=== PATIENT | female | born 1955 | race Caucasian/White ===

== ENCOUNTER 2023-12-06 20:07 | Inpatient (IN) | payer MEDICARE, MEDICAID, SELFPAY ==
[2023-12-06] VITALS (7 sets, daily range): BP systolic 113–137; BP diastolic 60–96; PULSE 112–134; RESP 18–23; TEMP 37.1–37.8; O2SAT 88–97
--- NOTE | ~2023-12-06 | XR_ITS ---
XR chest 1V portable 12/06/2023 21:30 Indication: Weakness. History of anal cancer. Procedure: AP portable chest Comparison: No prior studies for comparison. Findings: Heart size normal. Portacatheter tip in the SVC. The lungs are hyperinflated which is consi stent with, but not diagnostic of chronic obstructive pulmonary disease. No focal air space disease, pulmonary edema, pleural effusion or suspected pneumothorax. Impression: 1: No acute cardiopulmonary disease. Reviewed, dictated and finalized at location A. Impression: 1: No acute cardiopulmonary disease.
--- NOTE | ~2023-12-06 | CT_ITS ---
EXAMINATION: CTA chest PE protocol DATE: 12/08/2023 11:57 INDICATION: Abdominal pain, fever and elevated d-dimer. TECHNIQUE: Computed tomography (CT) pulmonary angiogram of the chest was performed with 100 mL Omnipa que-350 intravenous contrast. Additional 3D reconstructions utilizing coronal maximum intensity proje ction (MIP) were performed. Automated exposure control and iterative reconstruction technique were em ployed. The dose-length product was 281.60 mGy-cm. COMPARISON: None FINDINGS: Good contrast opacification of the pulmonary arteries with only minimal motion living diagnostic qual ity study which demonstrates no pulmonary embolism. Mild to moderate upper lung predominant emphysema . There is mild atelectasis/scarring at the paramediastinal aspect of the bilateral upper lobes as we ll as at the lingula and anteromedial basilar left lower lobe. There are a few scattered <4 mm pulmon shyla nodules most prominent at the lateral basilar right lower lobe with a few in the bilateral upper lobes. No pneumonia, pulmonary edema or pleural effusion. Heart size is normal. Atherosclerotic coron shyla artery calcifications. No pericardial effusion. Atherosclerotic calcific lesion along the normal caliber thoracic aorta without hemodynamically significant stenosis or dissection. No pathologically enlarged thoracic lymphadenopathy. Visualized upper abdomen is unremarkable. Mild thoracic spondylosi s. Chronic appearing mild anterior wedging of L1 with large Schmorl's node along the inferior endplat e. IMPRESSION: 1. Scattered mild atelectasis/scarring the bilateral lungs. No pulmonary embolism or other acute card iopulmonary disease. 2. Mild to moderate emphysema with few scattered <4 mm bilateral pulmonary nodules which could be con sistent with Lung-RADS category 2: Benign appearance or behavior and would recommend annual screening with noncontrast low-dose chest CT in 12 months. Reviewed, dictated and finalized at location B. IMPRESSION: 1. Scattered mild atelectasis/scarring the bilateral lungs. No pulmonary emboli sm or other acute cardiopulmonary disease. 2. Mild to moderate emphysema with few scattered <4 mm bilateral pulmonary nodu les which could be consistent with Lung-RADS category 2: Benign appearance or b ehavior and would recommend annual screening with noncontrast low-dose chest CT in 12 months.
--- NOTE | ~2023-12-06 | XR_ITS ---
EXAMINATION: XR retrograde pyelogram BI DATE: 12/07/2023 16:09 INDICATION: Right internal ureteral stent placement TECHNIQUE: Fluoroscopic images from a right internal ureteral stent placement are submitted for schuyler grubbs And he 4 seconds of fluoroscopy time. FINDINGS: There is a right double-J internal ureteral stent projecting in expected position, with proximal [place] loop at the level of the renal pelvis and distal loop not visualized. IMPRESSION: 1. Right internal ureteral stent placement. Please refer to real-time procedural findings for felicitas bowser. Reviewed, dictated and finalized at location A. IMPRESSION: 1. Right internal ureteral stent placement. Please refer to real-time procedu ral findings for details.
--- NOTE | ~2023-12-06 | US_ITS ---
EXAMINATION: US abdomen limited DATE: 12/08/2023 08:44 INDICATION: Gallbladder distention. Abdominal pain. TECHNIQUE: Multiple grayscale and Doppler ultrasound images of the abdomen were obtained. COMPARISON: CT abdomen and pelvis 12/06/2023 FINDINGS: The visualized portions of the body of the pancreas are normal. The liver is normal without focal lesion. There is normal flow in main portal vein. The gallbladder is distended and contains ga llstones. No gallbladder wall thickening or sonographic Damon sign. The common duct is normal and me asures 3 mm. IMPRESSION: 1. Cholelithiasis. Gallbladder distention is likely secondary to fasting. Reviewed, dictated and finalized at location A.
--- NOTE | ~2023-12-06 | CT_ITS ---
EXAMINATION: CT brain wo con DATE: 12/06/2023 21:55 INDICATION: Altered mental status TECHNIQUE: Computed tomography (CT) of the head was performed without intravenous contrast. The dose- length product was 605.33 mGy-cm. Automated exposure control and iterative reconstruction technique w ere employed. COMPARISON: None FINDINGS: There is a chronic right occipital lobe infarction with encephalomalacia. Normal brain pare nchymal volume otherwise. Normal brown-white differentiation. There is intracranial atherosclerosis. P aranasal sinuses and mastoids are pneumatized. No depressed skull fractures. There are scattered mild periventricular and subcortical white matter changes, most likely related to small vessel ischemic d isease (microangiopathy). Midline sagittal images are unremarkable. IMPRESSION: 1. No acute intracranial abnormality. 2: Chronic right occipital lobe infarction. Reviewed, dictated and finalized at location A.
--- NOTE | ~2023-12-06 | CT_ITS ---
EXAMINATION: CT abdomen pelvis w con DATE: 12/06/2023 21:55 INDICATION: Abdominal pain. History of anal cancer. TECHNIQUE: Computed tomography (CT) of the abdomen and pelvis was performed with 100 cc Omnipaque 350 intravenous contrast. The dose-length product was 344.50 mGy-cm. Automated exposure control and iter ative reconstruction technique were employed. COMPARISON: None. FINDINGS: There is lingular atelectasis/scarring. Heart size normal. No significant pleural or perica rdial effusion. Mild atherosclerosis of the aorta without aneurysm. Colostomy present in the left abd omen. Normal appendix. Status post distal colonic and rectal resection with prominent abnormal presac ral and retroperitoneal soft tissue, likely fibrosis. There is right hydroureteronephrosis with abrup t termination of the ureter in the right pelvis. Findings compatible with obstruction, likely seconda ry to fibrotic tissue. The bladder is diffusely thickened and irregular and with enhancement which ma y relate to radiation therapy and/or chronic cystitis. Small locules of gas are present in the retrop eritoneal soft tissue on the right of uncertain significance. Gallbladder is markedly distended. No s ignificant biliary dilatation. The liver, spleen, adrenal glands and left kidney are unremarkable. No significant vascular abnormality. IMPRESSION: 1. Status post resection of the distal colon and rectum with colostomy in the left lower abdominal wa ll. No obstruction. There is prominent retroperitoneal and presacral soft tissue likely postoperative /post radiation therapy fibrosis. Dilated right ureter terminates in the area of soft tissue, likely acting as a source of obstruction. There is moderate right hydronephrosis. 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 3: Severely distended gallbladder, nonspecific. No significant surrounding inflammatory changes. Reviewed, dictated and finalized at location A. IMPRESSION: 1. Status post resection of the distal colon and rectum with colostomy in the l eft lower abdominal wall. No obstruction. There is prominent retroperitoneal an d presacral soft tissue likely postoperative/post radiation therapy fibrosis. D ilated right ureter terminates in the area of soft tissue, likely acting as a s ource of obstruction. There is moderate right hydronephrosis. 2: Severely thickened irregular bladder wall which may relate to prior radiati on therapy and/or chronic cystitis. 3: Severely distended gallbladder, nonspecific. No significant surrounding infl ammatory changes.
--- NOTE | 2023-12-06 20:15 | ECG_ITS ---
SEE SCANNED COPY FOR CONFIRMED REPORT MTDD
[2023-12-06 20:39] LABS: Glucose Point of Care 177 mg/dl (65-105)
[2023-12-06] MEDS: ACETAMINOPHEN 500 MG TABLET 1000 MG PO (21:13)
[2023-12-06] MEDS: SODIUM CHLORIDE 0.9% IV 1,000 ML 999 ML IV CONT (21:13)
[2023-12-06 21:17] LABS: Hemoglobin 11.6 g/dL (12.0-15.0); Mean Corpuscular HGB Conc 30.5 g/dl (32-36); Mean Corpuscular Hemoglobin 25.4 pg (26-34); Mean Corpuscular Volume 83.2 fl (80-100); Mean Platelet Volume 9.7 fl (7.4-10.4); Platelet Count Result 257 k/mm3 (150-375); Red Blood Count 4.57 M/mm3 (4.2-5.4); Red Cell Distribution Width 15.6 % (11.5-14.5); White Blood Count 21.2 K/mm3 (4.5-10.0)
[2023-12-06 21:28] LABS: Prothrombin Time 13.7 Seconds (11.1-14.7)
[2023-12-06 21:29] LABS: Partial Thromboplastin Time 37.7 Seconds (22.3-36.8)
[2023-12-06 21:32] LABS: Alanine Aminotransferase 11 U/L (6-35); Albumin Level 4.5 g/dL (3.5-5.1); Alkaline Phosphatase 146 U/L (38-126); Anion Gap 9 mmol/L (4-12); Aspartate Amino Transferase 18 U/L (14-36); Bilirubin,Total 0.8 mg/dL (0.2-1.3); Blood Urea Nitrogen 16 mg/dL (7-17); Calcium 9.7 mg/dL (8.4-10.2); Carbon Dioxide 27 mmol/L (22-30); Chloride 102 mmol/L (98-107); Estimated Glomerular Filt Rate > 60; Glucose 164 mg/dL (65-110); Potassium 3.9 mmol/L (3.4-5.0); Sodium 138 mmol/L (137-145)
[2023-12-06 21:33] LABS: Lactic Acid Reflex 1.5 mmol/L (0.7-2.0)
[2023-12-06 21:43] LABS: Band Neutrophils Percent 4 % (0-6); Lymphocytes Absolute Manual 1.06 K/mm3 (1.1-4.5); Monocytes Absolute Manual 2.12 K/mm3 (0.1-0.90); Monocytes Percent Manual 10 % (3-9); Neutrophils Absolute Manual 18.02 K/mm3 (1.7-7.2); Neutrophils Percent Manual 81 % (46-73); Platelet Estimate Adequate (Adequate); Total Cells Counted 100
[2023-12-06 21:44] LABS: Anisocytosis 1+; Hypochromasia 1+; Schistocytes None Seen; Troponin I < 0.012 ng/mL (0.000-0.034)
[2023-12-06 21:48] LABS: Amphetamine Screen Urine Negative (Negative); Barbiturate Screen Urine Negative (Negative); Benzodiazepines Screen Urine Negative (Negative); Cannabinoid Screen Urine Negative (Negative); Cocaine Screen Urine Negative (Negative); Methadone Screen Urine Negative (Negative); Opiate Screen Urine Negative (Negative); Phencyclidine Screen Urine Negative (Negative)
[2023-12-06 21:52] LABS: Procalcitonin 0.4 ng/mL
[2023-12-06 22:00] LABS: Appearance Urine Cloudy (Clear); Bacteria Urine Rare /hpf; Bilirubin Urine Negative (Negative); Blood Urine 2+ (Negative); Color Urine Yellow (Yellow); Glucose Urine UA Negative (Negative); Ketones Urine Negative (Negative); Leukocyte Esterase Ur 2+ LEU/UL (Negative); Need Manual Microscopic Reviewed; Nitrate Urine Negative (Negative); Protein Urine 2+ mg/dL (Negative); RBC Urine 21-50 /hpf (0-2); Specific Grav Ur 1.015 (1.001-1.035); Squamous Epithelial Cell Urine None Seen /hpf (Few); WBC Urine >100 /hpf (0-3)
[2023-12-06 22:01] LABS: Add Urine Microscopic? YES
[2023-12-06 22:02] LABS: Influenza A QL RT-PCR Negative (Negative); Influenza B QL RT-PCR Negative (Negative); RSV RNA, RT-PCR Negative (Negative); SARS-CoV-2 RNA PCR Negative (Negative)
--- NOTE | 2023-12-06 22:57 | PC.NURSE ---
Assumed care of pt from [facility] at this time.
--- NOTE | 2023-12-06 23:28 | PM.IMHP ---
H&P: HPI History of Present Illness Date/Time: 12/06/23 23:28 Chief Complaint: AMS Narrative: THIS IS A 68-YEAR-OLD FEMALE WITH PAST MEDICAL HISTORY SIGNIFICANT FOR COPD/EMPHYSEMA, CHRONIC HYPOXIC RESPIRATORY FAILURE, ON SUPPLEMENTAL OXYGEN AT HOME BY NASAL CANNULA, TOBACCO DEPENDENCE, CERVICAL CA, RADIATION, COLOSTOMY. PATIENT PRESENTS TO THE EMERGENCY ROOM DUE TO ALTERED MENTAL STATUS WAS INCOHERENT. MOST OF THE HISTORY HAS BEEN OBTAINED FROM SON WHO IS AT BEDSIDE AT THE TIME OF MY VISIT PATIENT IS AWAKE ALERT ORIENTED X3 HOWEVER HAS NO RECOLLECTION OF THESE EPISODES STATES THAT SHE HAS BEEN FINE DENIES ANY FEVERS, RIGORS, CHILLS, NAUSEA, VOMITING. PRELIMINARY WORKUP WAS SIGNIFICANT FOR URINALYSIS WITH NUMEROUS WBCS PRESENT XR chest 1V portable 12/06/2023 21:30 Indication: Weakness. History of anal cancer. Procedure: AP portable chest Comparison: No prior studies for comparison. Findings: Heart size normal. Portacatheter tip in the SVC. The lungs are hyperinflated which is consistent with, but not diagnostic of chronic obstructive pulmonary disease. No focal air space disease, pulmonary edema, pleural effusion or suspected pneumothorax. Impression: 1: No acute cardiopulmonary disease. EXAMINATION: CT brain wo con DATE: 12/06/2023 21:55 INDICATION: Altered mental status TECHNIQUE: Computed tomography (CT) of the head was performed without intravenous contrast. The dose-length product was 605.33 mGy-cm. Automated exposure control and iterative reconstruction technique were employed. COMPARISON: None FINDINGS: There is a chronic right occipital lobe infarction with encephalomalacia. Normal brain parenchymal volume otherwise. Normal brown-white differentiation. There is intracranial atherosclerosis. Paranasal sinuses and mastoids are pneumatized. No depressed skull fractures. There are scattered mild periventricular and subcortical white matter changes, most likely related to small vessel ischemic disease (microangiopathy). Midline sagittal images are unremarkable. IMPRESSION: 1. No acute intracranial abnormality. 2: Chronic right occipital lobe infarction. EXAMINATION: CT abdomen pelvis w con DATE: 12/06/2023 21:55 INDICATION: Abdominal pain. History of anal cancer. TECHNIQUE: Computed tomography (CT) of the abdomen and pelvis was performed with 100 cc Omnipaque 350 intravenous contrast. The dose-length product was 344.50 mGy-cm. Automated exposure control and iterative reconstruction technique were employed. COMPARISON: None. FINDINGS: There is lingular atelectasis/scarring. Heart size normal. No significant pleural or pericardial effusion. Mild atherosclerosis of the aorta without aneurysm. Colostomy present in the left abdomen. Normal appendix. Status post distal colonic and rectal resection with prominent abnormal presacral and retroperitoneal soft tissue, likely fibrosis. There is right hydroureteronephrosis with abrupt termination of the ureter in the right pelvis. Findings compatible with obstruction, likely secondary to fibrotic tissue. The bladder is diffusely thickened and irregular and with enhancement which may relate to radiation therapy and/or chronic cystitis. Small locules of gas are present in the retroperitoneal soft tissue on the right of uncertain significance. Gallbladder is markedly distended. No significant biliary dilatation. The liver, spleen, adrenal glands and left kidney are unremarkable. No significant vascular abnormality. IMPRESSION: 1. Status post resection of the distal colon and rectum with colostomy in the left lower abdominal wall. No obstruction. There is prominent retroperitoneal and presacral soft tissue likely postoperative/post radiation therapy fibrosis. Dilated right ureter terminates in the area of soft tissue, likely acting as a source of obstruction. There is moderate right hydronephrosis. 2:? Severely thickened irregular bladder wall which may relate to prior radiation therapy
--- NOTE | 2023-12-06 23:34 | ED.GENADULT ---
HPI - General Adult General Chief complaint: Altered Mental Status Stated complaint: confusion Time Seen by Provider: 12/06/23 20:41 History of Present Illness HPI narrative: patient is a 68-year-old female who presents emergency department with chief complaint of altered mental status. Patient has prior history of cancer and takes chronic pain medications the patient has had a diverting colostomy the patient today started having a temperature and was talking nonsensical to the family she was extremely weak and decided to bring the patient to our emergency department. Related Data Allergies Allergy/AdvReac Type Severity Reaction Status Date / Time No Known Allergies Allergy Verified 12/06/23 20:58 Review of Systems Review of Systems: A 10 system review of systems was completed on the patient and is negative except for what is stated in the HPI. Nursing and ancillary documentation was reviewed. Exam Narrative: GENERAL: ill-appearing, well-nourished, and in no acute distress. HEAD: Normocephalic, atraumatic. EYES: PERRLA and EOMI. ENT: Nares clear, no rhinorrhea or epistaxis. Mucous membranes moist. NECK: Supple. CHEST: Clear to auscultation. No respiratory distress. HEART: Regular rate and rhythm. No murmur heard. Normal peripheral pulses. ABDOMEN: Soft, nontender, nondistended, normal active bowel sounds. colostomy present EXTREMITIES: Normal range of motion. No edema. SKIN: Warm, dry, no rash. NEURO: No focal deficits. Alert and oriented x3. PSYCH: Normal mood and affect. Course Vital Signs Vital signs: Vital Signs Temperature 37.8 C H 12/06/23 20:10 Pulse Rate 134 H 12/06/23 20:10 Respiratory Rate 20 12/06/23 20:10 Blood Pressure 137/62 12/06/23 20:10 Pulse Oximetry 93 12/06/23 20:10 Oxygen Delivery Room Air 12/06/23 20:10 Temperature 37.1 C 12/06/23 21:00 Pulse Rate 112 H 12/06/23 22:44 Respiratory Rate 20 12/06/23 22:44 Blood Pressure 113/60 12/06/23 22:44 Pulse Oximetry 96 12/06/23 22:44 Oxygen Delivery Nasal Cannula 12/06/23 21:58 Oxygen Flow Rate 3 12/06/23 21:58 Medical Decision Making MDM Narrative Medical decision making narrative: differential diagnosis includes viral illness, sepsis, UTI, pyelonephritis, intra-abdominal infection, pneumonia laboratory studies were obtained on patient showed white count [id number] electrolytes showed normal renal function pre troponin was less than 0.012 procalcitonin 0.4 lactic acid was 1.5 urinalysis showed 2+ leuks greater than 100 white blood cells urine drug screen was negative COVID flu and RSV were negative CT head showed no acute abnormality chest x-ray showed no focal infiltrate CT abdomen pelvis showed 1. Status post resection of the distal colon and rectum with colostomy in the left lower abdominal wall. No obstruction. There is prominent retroperitoneal and presacral soft tissue likely postoperative/post radiation therapy fibrosis. Dilated right ureter terminates in the area of soft tissue, likely acting as a source of obstruction. There is moderate right hydronephrosis. 2:? Severely thickened irregular bladder wall which may relate to prior radiation therapy and/or chronic cystitis. 3: Severely distended gallbladder, nonspecific. No significant surrounding inflammatory changes. patient was blood cultured and also started on Rocephin. A call has been placed to Urology for palpitation to hydronephrosis on the scan Vital Signs Vital Signs: Vital Signs Temperature 37.8 C H 12/06/23 20:10 Pulse Rate 134 H 12/06/23 20:10 Respiratory Rate 20 12/06/23 20:10 Blood Pressure 137/62 12/06/23 20:10 Pulse Oximetry 93 12/06/23 20:10 Oxygen Delivery Room Air 12/06/23 20:10 Temperature 37.1 C 12/06/23 21:00 Pulse Rate 112 H 12/06/23 22:44 Respiratory Rate 20 12/06/23 22:44 Blood Pressure 113/60 12/06/23 22:44 Pulse Oximetry 96 12/06/23 22:44 Oxygen Deliv
[2023-12-07] VITALS (21 sets, daily range): BP systolic 106–142; BP diastolic 50–78; PULSE 111–140; RESP 14–20; TEMP 36.6–38; O2SAT 94–100
--- NOTE | 2023-12-07 00:40 | ECG_ITS ---
SEE SCANNED COPY FOR CONFIRMED REPORT MTDD
[2023-12-07] MEDS: SODIUM CHLORIDE 0.9% IV 1,000 ML 999 ML IV CONT (00:59)
[2023-12-07] MEDS: ACETAMINOPHEN 325 MG TABLET 650 MG PO (01:00)
--- NOTE | 2023-12-07 02:38 | ADMGEN ---
This patient, Anny Logan, was admitted to [facility] Surg Room 332-01. Patient/family oriented to hospital policies and general routines including ID bracelet, bed and alarms, visiting hours, pain management, procedures, bathroom and other care routines, personal items, smoking policy, room service/diet, and visiting hours. Information on how to activate the Rapid Response Team has been discussed. Patient/Family are encouraged to report perceived risks to care and to ask questions if they do not understand what they are told or what they should do.
[2023-12-07] MEDS: SODIUM CHLORIDE 0.9% IV 1,000 ML 75 ML IV CONT ×2 (02:50→17:27)
--- NOTE | 2023-12-07 02:57 | PC.NURSE ---
this RN attempted to complete pts admissions, pt was non compliant with answering most of the admission questions and what medications they were taking
--- NOTE | 2023-12-07 03:33 | ECG_ITS ---
SEE SCANNED COPY FOR CONFIRMED REPORT MTDD
--- NOTE | 2023-12-07 07:07 | WPDURCON ---
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 She is status post diverting colostomy for GI malignancy in the past. On evaluation CT scan demonstrates right hydronephrosis with dilatation of the ureter into the pelvis where she has both a very thickened bladder wall and some evidence of pelvic scarring/ fibrosis. Etiology of this hydronephrosis appears uncertain but there is no apparent ureteral calculi. She denies flank pain. She has no history of recurrent urinary tract infection lithiasis or other significant urological issues Review of Systems Review of Systems: All systems reviewed & are unremarkable except as noted in HPI and below PMFSH Social History Social History Smoking packs per day: 1 Smoking cigarettes per day: 20.0 Smoking status: Current every day smoker Tobacco type: cigarettes Alcohol intake: current Substance use: never Do You Feel Safe in your Home?: Yes Lack of Transportation: No Lack of Food: Never True Current Housing: I Have Housing Concerned About Future Housing: No Difficulty Paying Gas/Electric Bills: No Difficulty Paying for Meds: No Currently Unemployed: No Education: High School Diploma/GED Difficulty w/ Childcare or Family Care: No Spiritual care concerns: No Meds Home Medications and Allergies Home Medications Medication Instructions Recorded Confirmed Type atorvastatin 40 mg tablet 40 mg PO DAILY 12/07/23 12/07/23 History gabapentin 300 mg capsule 300 mg PO TID 12/07/23 12/07/23 History nortriptyline 25 mg capsule 25 mg PO HS 12/07/23 12/07/23 History oxycodone-acetaminophen 5 mg-325 1 tablet PO TID 12/07/23 12/07/23 History mg tablet topiramate 50 mg tablet 50 mg PO DAILY 12/07/23 12/07/23 History Allergies Allergy/AdvReac Type Severity Reaction Status Date / Time No Known Allergies Allergy Verified 12/06/23 20:58 Vital Signs Vital Signs - 24 hr 12/06/23 20:10 12/06/23 21:00 12/06/23 21:02 Temperature 100.1 F H 98.7 F Pulse Rate 134 H 122 H Respiratory Rate 20 23 H Blood Pressure 137/62 125/69 Pulse Oximetry 93 88 L 95 Oxygen Delivery Room Air Nasal Cannula Oxygen Flow Rate 2 12/06/23 21:21 12/06/23 21:43 12/06/23 21:58 Temperature Pulse Rate 115 H 115 H Respiratory Rate 22 H 18 Blood Pressure 123/70 118/96 H Pulse Oximetry 94 97 97 Oxygen Delivery Nasal Cannula Oxygen Flow Rate 3 12/06/23 22:44 12/07/23 01:00 12/07/23 01:04 Temperature 99.9 F H Pulse Rate 112 H 140 H Respiratory Rate 20 Blood Pressure 113/60 Pulse Oximetry 96 Oxygen Delivery Oxygen Flow Rate 12/07/23 01:38 12/07/23 01:40 12/07/23 02:35 Temperature 100.4 F H Pulse Rate 126 H 124 H 129 H Respiratory Rate 19 17 20 Blood Pressure 140/78 140/78 132/57 L Pulse Oximetry 96 97 99 Oxygen Delivery Oxygen Flow Rate 12/07/23 06:00 12/07/23 04:00 Temperature 98.0 F Pulse Rate 125 H 122 H Respiratory Rate 20 Blood Pressure 129/67 Pulse Oximetry 97 Oxygen Delivery Oxygen Flow Rate Exam Const: General: no acute distress Resp: Effort & Inspection: normal respiratory effort GI: Inspection: non
--- NOTE | 2023-12-07 07:10 | WPDHPUPDATE1 ---
History and Physical Update Update Date/Time: 12/07/23 07:10 History and Physical has been reviewed, including an updated exam of the patient. There are NO changes in the patient's condition. Risks, benefits, and alternatives have been discussed and questions answered. Patient agrees to proceed with procedure.
--- NOTE | 2023-12-07 08:37 | P.PNIM_ITS ---
Progress Note: A&P Assessment and Plan (1) Sepsis: Code(s): A41.9 - Sepsis, unspecified organism Status: Acute Assessment and Plan: 12/07/23: * Meeting sepsis criteria with HR of , RR 22-24, temp 100.4, elevated WBC, and known source of infection/UTI * Patient was given 2 L normal saline in the ED and started on IVF at 75 mL/hour * WBC 21.2 initially, now 22.5, Lactic acid 1.5 * Blood cultures obtained in her pending, currently showing no growth to date on preliminary read * UA showing 2+ protein 2+ blood 2+ leukocytes, greater than 100 urine WBCs, rare bacteria, negative nitrate * Urine cultures pending * Will change Rocephin 1 g 2 Rocephin 2 g Q 24 hours * Chest x-ray was negative * Head CT was negative for any acute intracranial abnormality 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 * CT of the abdomen pelvis showed a dilated right ureter that terminated into the area of soft tissue likely acting as a source of obstruction, moderate right hydronephrosis, severely thickened irregular bladder wall, severely distended gallbladder (2) Acute UTI: Code(s): N39.0 - Urinary tract infection, site not specified Status: Acute Assessment and Plan: 11/05/23: ADMIT TO REGULAR MEDICAL FLOOR STARTED ON ANTIBIOTICS CULTURES IN PROGRESS SUPPORTIVE CARE 11/06/23: * * WBC 22.5 * Blood culture showing no growth on preliminary read * UA showed 2+ protein, 2+ urine blood, 2+ leukocytes, greater than 100 urine wbc's, 21-50 urine RBCs, rare urine bacteria, nitrates were negative * Urine cultures pending * Increase to 2 g Rocephin daily * Status post cystoscopy with right ureteral stent placement * Continue with Yuen, currently draining pink tinged urine * Continue cardiac monitoring * Continue with SCDs * Magnesium 1.4, will give 3 g of Mag today * Continue pain control (3) Altered mental status: Code(s): R41.82 - Altered mental status, unspecified Status: Acute Assessment and Plan: RESOLVED LIKELY SECONDARY TO 1. 11/06/23: * Alert to voice and oriented x1, however she is in the PACU status post cystoscopy * Will reassess in the morning (4) Chronic hypoxic respiratory failure: Code(s): J96.11 - Chronic respiratory failure with hypoxia Status: Acute Assessment and Plan: ON SUPPLEMENTAL OXYGEN BY NASAL CANNULA 11/06/23: * Currently on 2 L nasal cannula * Wheezing noted bilaterally throughout all lung tamayo * Will put in DuoNebs q.6 hours (5) COPD with emphysema: Code(s): J43.9 - Emphysema, unspecified Status: Acute Assessment and Plan: CONTINUE HOME MEDS NOT ACTIVELY WHEEZING 11/06/23: * Wheezing noted today * Neb treatments started Time Spent With Patient Time with patient: 25 - 35 minutes Subjective Date/time seen: 12/07/23 08:37 Interval history: This is a 68 year old female who presents to the hospital for evaluation of AMS. Work up in the hospital included a chest x-ray that was negative, head CT which shown a right occipital lobe infarction, no acute intracranial abnormality, CT of the abdomen/pelvis shown a dilated right ureter that terminates into soft tissue, likely an obstruction, moderate right hydronephrosis, severely distended gallbladder. Initial labs revealed a WBC of 21.2, Hgb 11.6, Alk phos 146. UA revealed 2+ protein, 2+ urine blood, 2+ leukocytes, urine RBC 21-50, urine WBC >100. UDS negative. Respiratory panel negative for RSV, COVID, and FLU A/B. Blood and urine cultures were obtained and pending. Patient was given 2L NS
--- NOTE | 2023-12-07 08:37 | PM.IMPN ---
Progress Note: A&P Assessment and Plan (1) Sepsis: Code(s): A41.9 - Sepsis, unspecified organism Status: Acute Assessment and Plan: 12/07/23: Meeting sepsis criteria with HR of , RR 22-24, temp 100.4, elevated WBC, and known source of infection/UTI Patient was given 2 L normal saline in the ED and started on IVF at 75 mL/hour WBC 21.2 initially, now 22.5, Lactic acid 1.5 Blood cultures obtained in her pending, currently showing no growth to date on preliminary read UA showing 2+ protein 2+ blood 2+ leukocytes, greater than 100 urine WBCs, rare bacteria, negative nitrate Urine cultures pending Will change Rocephin 1 g 2 Rocephin 2 g Q 24 hours Chest x-ray was negative Head CT was negative for any acute intracranial abnormality 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 CT of the abdomen pelvis showed a dilated right ureter that terminated into the area of soft tissue likely acting as a source of obstruction, moderate right hydronephrosis, severely thickened irregular bladder wall, severely distended gallbladder (2) Acute UTI: Code(s): N39.0 - Urinary tract infection, site not specified Status: Acute Assessment and Plan: 11/05/23: ADMIT TO REGULAR MEDICAL FLOOR STARTED ON ANTIBIOTICS CULTURES IN PROGRESS SUPPORTIVE CARE 11/06/23: WBC 22.5 Blood culture showing no growth on preliminary read UA showed 2+ protein, 2+ urine blood, 2+ leukocytes, greater than 100 urine wbc's, 21-50 urine RBCs, rare urine bacteria, nitrates were negative Urine cultures pending Increase to 2 g Rocephin daily Status post cystoscopy with right ureteral stent placement Continue with Yuen, currently draining pink tinged urine Continue cardiac monitoring Continue with SCDs Magnesium 1.4, will give 3 g of Mag today Continue pain control (3) Altered mental status: Code(s): R41.82 - Altered mental status, unspecified Status: Acute Assessment and Plan: RESOLVED LIKELY SECONDARY TO 1. 11/06/23: Alert to voice and oriented x1, however she is in the PACU status post cystoscopy Will reassess in the morning (4) Chronic hypoxic respiratory failure: Code(s): J96.11 - Chronic respiratory failure with hypoxia Status: Acute Assessment and Plan: ON SUPPLEMENTAL OXYGEN BY NASAL CANNULA 11/06/23: Currently on 2 L nasal cannula Wheezing noted bilaterally throughout all lung tamayo Will put in DuoNebs q.6 hours (5) COPD with emphysema: Code(s): J43.9 - Emphysema, unspecified Status: Acute Assessment and Plan: CONTINUE HOME MEDS NOT ACTIVELY WHEEZING 11/06/23: Wheezing noted today Neb treatments started Time Spent With Patient Time with patient: 25 - 35 minutes Subjective Date/time seen: 12/07/23 08:37 Interval history: This is a 68 year old female who presents to the hospital for evaluation of AMS. Work up in the hospital included a chest x-ray that was negative, head CT which shown a right occipital lobe infarction, no acute intracranial abnormality, CT of the abdomen/pelvis shown a dilated right ureter that terminates into soft tissue, likely an obstruction, moderate right hydronephrosis, severely distended gallbladder. Initial labs revealed a WBC of 21.2, Hgb 11.6, Alk phos 146. UA revealed 2+ protein, 2+ urine blood, 2+ leukocytes, urine RBC 21-50, urine WBC >100. UDS negative. Respiratory panel negative for RSV, COVID, and FLU A/B. Blood and urine cultures were obtained and pending. Patient was given 2L NS and started on Rocephin. Patient initially meeting sepsis criteria with a temp of 100.4, pulse of 134, tachypnea with RR of 23, hypoxia 88% on room air, elevated WBC, and known source of infection. Urology was consulted and is planning for cystoscopy with right retrograde pyelography, right ureteroscopy and stent placement today. On examination today patient is arousable to voice, currently in PACU recovery s/p cystoscopy with
[2023-12-07 10:03] LABS: Hematocrit 33.3 % (37.0-47.0); Hemoglobin 9.9 g/dL (12.0-15.0); Mean Corpuscular HGB Conc 29.7 g/dl (32-36); Mean Corpuscular Hemoglobin 25.3 pg (26-34); Mean Corpuscular Volume 84.9 fl (80-100); Mean Platelet Volume 10.6 fl (7.4-10.4); Platelet Count Result 192 k/mm3 (150-375); Red Blood Count 3.92 M/mm3 (4.2-5.4); Red Cell Distribution Width 15.6 % (11.5-14.5); White Blood Count 22.5 K/mm3 (4.5-10.0)
[2023-12-07 10:05] LABS: Alanine Aminotransferase 10 U/L (6-35); Albumin Level 3.6 g/dL (3.5-5.1); Alkaline Phosphatase 109 U/L (38-126); Anion Gap 3 mmol/L (4-12); Aspartate Amino Transferase 15 U/L (14-36); Bilirubin,Total 0.5 mg/dL (0.2-1.3); Blood Urea Nitrogen 12 mg/dL (7-17); Calcium 8.1 mg/dL (8.4-10.2); Carbon Dioxide 29 mmol/L (22-30); Chloride 106 mmol/L (98-107); Estimated Glomerular Filt Rate > 60; Glucose 145 mg/dL (65-110); Magnesium 1.4 mg/dL (1.6-2.3); Potassium 3.5 mmol/L (3.4-5.0); Sodium 138 mmol/L (137-145)
[2023-12-07] MEDS: LACTATED RINGERS 1,000 ML 30 ML IV CONT (13:55)
--- NOTE | 2023-12-07 14:24 | WPDANESEPPF ---
Anes - Initial Pre Proc Eval Procedure: Operation Date: 12/07/23 15:15 Proposed Procedures p Cystoscopy, Right Retrograde Pyelogram, Right Ureteroscopy, Right Ureteral Stent Placement - Familia Sena MD Date/Time: 12/07/23 14:24 Surgeon: Ritchie Gannon MD Pre Op Diagnosis: UTI,Leukocytosis Patient Data Age: 68 Gender: F Height: 1.5 m Weight: 65 kg Last Vital Signs Temp 98.0 F 12/07/23 06:00 Pulse 125 H 12/07/23 06:00 Resp 20 12/07/23 06:00 BP 129/67 12/07/23 06:00 Pulse Ox 94 12/07/23 08:00 O2 Del Method Nasal Cannula 12/07/23 08:00 O2 Flow Rate 3 12/07/23 08:00 Allergies Allergy/AdvReac Type Severity Reaction Status Date / Time No Known Allergies Allergy Verified 12/06/23 20:58 Home Medications Medication Instructions Recorded Confirmed Type atorvastatin 40 mg tablet 40 mg PO DAILY 12/07/23 12/07/23 History gabapentin 300 mg capsule 300 mg PO TID 12/07/23 12/07/23 History nortriptyline 25 mg capsule 25 mg PO HS 12/07/23 12/07/23 History oxycodone-acetaminophen 5 mg-325 1 tablet PO TID 12/07/23 12/07/23 History mg tablet topiramate 50 mg tablet 50 mg PO DAILY 12/07/23 12/07/23 History Laboratory Tests 12/06/23 12/06/23 12/06/23 20:37 21:04 21:05 WBC 21.2 H K/mm3 (4.5-10.0) RBC 4.57 M/mm3 (4.2-5.4) Hgb 11.6 L g/dL (12.0-15.0) Hct 38.0 % (37.0-47.0) MCV 83.2 fl (80-100) MCH 25.4 L pg (26-34) MCHC 30.5 L g/dl (32-36) RDW 15.6 H % (11.5-14.5) Plt Count 257 k/mm3 (150-375) MPV 9.7 fl (7.4-10.4) Immature Gran % (Auto) Not Reportable Neut % (Auto) Not Reportable Lymph % (Auto) Not Reportable [place] % (Auto) Not Reportable Eos % (Auto) Not Reportable Baso % (Auto) Not Reportable Lymph # (Auto) Not Reportable [place] # (Auto) Not Reportable Eos # (Auto) Not Reportable Baso # (Auto) Not Reportable Abs Immat Gran (auto) Not Reportable Absolute Neuts (auto) Not Reportable Absolute Nucleated RBC Not Reportable Total Counted 100 Neutrophils % (Manual) 81 H % (46-73) Band Neutrophils % 4 % (0-6) Lymphocytes % (Manual) 5.0 L % (18-44) Monocytes % (Manual) 10 H % (3-9) Nucleated RBC % Not Reportable Abs Neuts (Manual) 18.02 H K/mm3 (1.7-7.2) Abs Lymphs (Manual) 1.06 L K/mm3 (1.1-4.5) Abs Monocytes (Manual) 2.12 H K/mm3 (0.1-0.90) Platelet Estimate Adequate (Adequate) Hypochromasia 1+ Anisocytosis 1+ Schistocytes None seen PT 13.7 Seconds (11.1-14.7) INR 1.0 APTT 37.7 H Seconds (22.3-36.8) Sodium Cancelled Potassium Chloride Carbon Dioxide Anion Gap BUN Creatinine Estim Creat Clear Calc Estimated GFR Glucose POC Capillary Glucose 177 H mg/dl (65-105) Lactic Acid 1.5 mmol/L (0.7-2.0) Calcium Magnesium Total Bilirubin AST ALT Alkaline Phosphatase Troponin I Total Protein Albumin Procalcitonin Urine Color Urine Appearance Urine pH Ur Specific [place] Urine Protein Urine Glucose (UA) Urine Ketones Ur Blood (Man) Urine Nitrate Urine Bilirubin Urine Urobilinogen Add Ur Microanalysis Leukocyte Esterase Rfl Urine RBC Urine WBC Ur Squamous Epith Cells Urine
--- NOTE | 2023-12-07 15:15 | PCCCNOTE ---
On 12/07/23, the student, [Ghada Garcia], provided care and completed [facility] documentation on this patient. I have reviewed the student's documentation and agree with the findings.
[2023-12-07] MEDS: LIDOCAINE HCL 2% GEL UROJET 10 ML PKG MUCOUS MEM (15:50)
--- NOTE | 2023-12-07 16:03 | W.PM.PROC2 ---
Procedure Note - Detailed Date of Procedure 12/07/23 Pre-op Diagnosis UTI,Leukocytosis Post-op Diagnosis Other (1. 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 Patchy hyperemia of bladder of uncertain etiology) Procedure Performed Cystoscopy, bilateral retrograde pyelography, right ureteroscopy, right ureteral stent placement, bladder biopsy Surgeon Familia Sena MD Anesthesia General Findings 1. Diffuse, asymmetrical patchy hyperemia involving predominantly the left lateral bladder wall 2, Marked narrowing and medial deviation of the entire distal right ureter consistent with retroperitoneal fibrosis Description of Procedure Patient is brought to the operative suite where she is prepped and draped in routine sterile fashion while in dorsal lithotomy position after the uneventful induction of a general anesthetic. Cystoscopy was undertaken with a 21 F rigid cystoscope. Urine was collected for cytology. I immediately noticed has this unusual appearing asymmetrical patchy hyperemia that may be inflammatory but involves more so the left lateral bladder wall than anywhere else. At the termination of the procedure I obtained cold cup biopsies from that area and cauterized the base with a Bugbee electrode. Identifying her ureteral orifices was extremely difficult because of this hyperemia in the left lateral bladder wall and on the right extensive scarring. I did did find a ureteral orifice which I thought may be the right ureteral orifice. Retrograde pyelography, however, showed it to be the left. There were no filling defects or points of obstruction in the left ureter or collecting system. With an exhaustive attempt I was eventually able to find the right ureteral orifice. Retrograde pyelography shows concentric narrowing with marked medial deviation consistent with retroperitoneal fibrosis. I performed ureteroscopy of the distal ureter with a flexible ureteral scope. There were no mucosal defects her hyper per Dora is suggestive of neoplasm. I dilated the ureter with an 8 F 10 F dilator and placed a 7 F variable length stent with proximal coil in the renal pelvis and distal coil in the bladder. A 16 F catheter was placed and she was taken recovery room good condition. Urine Output 250 Drains Yes Pathology Yes Complications No immediate complications Condition Stable Disposition PACU
[2023-12-07] MEDS: MAGNESIUM SULFATE 3GM/D5W100ML 3 GM/100 ML BAG IVPB (17:24)
[2023-12-07] MEDS: IPRATROPIUM 0.5 MG/ALBUTEROL SULFATE 2.5 MG AMPUL.NEB 3 ML INHALATION (20:20)
[2023-12-07] MEDS: cefTRIAXone 2 GM/NS 100 ML 2 GM/100 ML BAG IVPB (21:28)
[2023-12-08] VITALS (18 sets, daily range): BP systolic 118–135; BP diastolic 53–73; PULSE 98–125; RESP 12–20; TEMP 35.7–36.9; O2SAT 98–100
[2023-12-08 00:46] LABS: Glucose Point of Care 160 mg/dl (65-105)
[2023-12-08] MEDS: IPRATROPIUM 0.5 MG/ALBUTEROL SULFATE 2.5 MG AMPUL.NEB 3 ML INHALATION ×4 (02:34→20:40)
--- NOTE | 2023-12-08 06:19 | WPDUROPN2 ---
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 onc. evaluation of retroperitoneal fibrosis to r/o malignant recurrence of colon cancer Mgmt. of ureteral obstruction will be challenging and may require long-term stent. IMPERATIVE that pt. reliably f/u for mgmt. of ureteral stent. Will need to see in f/u 3-4 weeks after discharge. Subjective Subjective Date/Time Seen: 12/08/23 06:19 Interval history: Comfortable, anxious for discharge Review of Systems Cardiovascular: Cardiovascular: Denies chest pain, Denies lightheadedness, Denies palpitations and Denies dyspnea Respiratory: Respiratory: Denies dyspnea Gastrointestinal: Gastrointestinal: Denies diarrhea, Denies nausea and Denies vomiting Genitourinary: Genitourinary: Denies hematuria and Denies dysuria Endocrine: Endocrine: Denies palpitations Exam Const: General: no acute distress Resp: Effort & Inspection: normal respiratory effort GI: Inspection: non-distended GI Palp: No abdominal tenderness and No Guarding due to palpation present (GI) Auscultation: normal bowel sounds Objective Data Vital Signs Vital Signs: Vital Signs - 24 hr 12/07/23 08:00 12/07/23 13:55 12/07/23 14:00 Temperature 98.0 F 98.8 F Pulse Rate 119 H 111 H Respiratory Rate 20 16 Blood Pressure 126/50 L 124/52 L Pulse Oximetry 94 100 98 Oxygen Delivery Nasal Cannula Nasal Cannula Oxygen Flow Rate 3 3 12/07/23 16:06 12/07/23 16:15 12/07/23 16:30 Temperature 97.8 F Pulse Rate 128 H 124 H 122 H Respiratory Rate 20 20 20 Blood Pressure 122/53 L 139/68 106/68 Pulse Oximetry 100 100 98 Oxygen Delivery Simple Face Mask Simple Face Mask Nasal Cannula Oxygen Flow Rate 8 8 3 12/07/23 16:45 12/07/23 16:56 12/07/23 17:10 Temperature 99.7 F H Pulse Rate 122 H 122 H 120 H Respiratory Rate 20 20 18 Blood Pressure 130/54 L 142/73 H 136/63 Pulse Oximetry 100 99 100 Oxygen Delivery Nasal Cannula Nasal Cannula Oxygen Flow Rate 3 3 12/07/23 17:25 12/07/23 20:25 12/07/23 20:27 Temperature 98.1 F Pulse Rate 117 H 111 H 111 H Respiratory Rate 16 14 14 Blood Pressure 139/61 Pulse Oximetry 99 100 Oxygen Delivery Nasal Cannula Oxygen Flow Rate 3 12/07/23 20:36 12/07/23 20:00 12/08/23 01:46 Temperature 98.5 F Pulse Rate 113 H 113 H 102 H Respiratory Rate 14 14 12 Blood Pressure 135/66 Pulse Oximetry 100 100 Oxygen Delivery Nasal Cannula Oxygen Flow Rate 3 12/08/23 02:37 12/08/23 02:49 12/07/23 20:00 Temperature Pulse Rate 108 H 111 H 112 H Respiratory Rate 14 14 Blood Pressure Pulse Oximetry Oxygen Delivery Oxygen Flow Rate 12/08/23 00:00 12/08/23 04:00 Temperature Pulse Rate 101 H 106 H Respiratory Rate Blood Pressure Pulse Oximetry Oxygen Delivery Oxygen Flow Rate Intake/Output Intake/Output: Intake & Output 12/05/23 12/06/23 12/07/23 12/08/23 23:59 23:59 23:59 23:59 Intake Total 1050 1600 Output Total 250 250 Balance 800 1350 Meds/Results Medications: Active Medications Generic Name Dose Route Start Last Admin Trade Name Freq PRN Reason Stop Dose Admin Acetaminophen 650 mg 12/06/23 23:56 12/07/23 01:00 Acetaminophen 325 Mg Tablet PO 650 mg Q4H PRN Administration Mild Pain (1-3) or Fever Albuterol/Ipratropium 3 ml 12/07/23 20:00 12/08/23 02:34 Ipratropium 0.5 Mg/Albuterol Sulfate 2.5 Mg Ampul.Neb 3 Ml INHALATION 3 ml Q6HRT NICKY Administration Atorvastatin Calcium 40 mg 12/08/23 09:00 Atorvastatin 40 Mg Tablet PO DAILY NICKY Gabapentin 300 mg 12/08/23 09:00 Gabapentin 300 Mg Capsule PO TID NICKY Sodium Chloride 1,000 mls @ 75 mls/hr 12/06/23 23:45 12/07/23 17:27 Normal Saline Iv I
[2023-12-08 06:30] LABS: Hematocrit 32.9 % (37.0-47.0); Hemoglobin 9.8 g/dL (12.0-15.0); Mean Corpuscular HGB Conc 29.8 g/dl (32-36); Mean Corpuscular Hemoglobin 25.4 pg (26-34); Mean Corpuscular Volume 85.2 fl (80-100); Mean Platelet Volume 10.9 fl (7.4-10.4); Platelet Count Result 166 k/mm3 (150-375); Red Blood Count 3.86 M/mm3 (4.2-5.4); Red Cell Distribution Width 15.3 % (11.5-14.5); White Blood Count 18.7 K/mm3 (4.5-10.0)
[2023-12-08 06:42] LABS: Alanine Aminotransferase 10 U/L (6-35); Albumin Level 3.8 g/dL (3.5-5.1); Alkaline Phosphatase 124 U/L (38-126); Anion Gap 9 mmol/L (4-12); Aspartate Amino Transferase 14 U/L (14-36); Bilirubin,Total 0.3 mg/dL (0.2-1.3); Blood Urea Nitrogen 16 mg/dL (7-17); Calcium 8.7 mg/dL (8.4-10.2); Carbon Dioxide 25 mmol/L (22-30); Chloride 107 mmol/L (98-107); Estimated Glomerular Filt Rate > 60; Glucose 163 mg/dL (65-110); Magnesium 2.9 mg/dL (1.6-2.3); Potassium 3.7 mmol/L (3.4-5.0); Sodium 141 mmol/L (137-145)
--- NOTE | 2023-12-08 08:08 | WPDANESPN ---
Anes - Prog Note Post-Op Date/Time: 12/08/23 08:08 Vital Signs: Last Vital Signs Temp 36.9 C 12/08/23 01:46 Pulse 106 H 12/08/23 04:00 Resp 14 12/08/23 02:49 BP 135/66 12/08/23 01:46 Pulse Ox 100 12/08/23 01:46 O2 Del Method Nasal Cannula 12/07/23 20:25 O2 Flow Rate 3 12/07/23 20:25 Pain Score (VAS): 3 I/O: Intake & Output 12/07/23 12/08/23 12/08/23 23:59 07:59 15:59 Intake Total 1700 Output Total 250 400 Balance 1450 -400 Laboratory Tests 12/08/23 05:25 12/08/23 05:25 12/07/23 12/08/23 12/08/23 09:47 00:42 05:25 WBC 22.5 H 18.7 H RBC 3.92 L 3.86 L Hgb 9.9 L 9.8 L Hct 33.3 L 32.9 L MCV 84.9 85.2 MCH 25.3 L 25.4 L MCHC 29.7 L 29.8 L RDW 15.6 H 15.3 H Plt Count 192 166 MPV 10.6 H 10.9 H Sodium 138 141 Potassium 3.5 3.7 Chloride 106 107 Carbon Dioxide 29 25 Anion Gap 3 L 9 BUN 12 16 Creatinine 0.70 0.70 Estim Creat Clear Calc Not Reportable Not Reportable Estimated GFR > 60 > 60 Glucose 145 H 163 H POC Capillary Glucose 160 H Calcium 8.1 L 8.7 Magnesium 1.4 L 2.9 H Total Bilirubin 0.5 0.3 AST 15 14 ALT 10 10 Alkaline Phosphatase 109 124 Total Protein 7.0 8.0 Albumin 3.6 3.8 Microbiology 12/06/23 21:17 Urine Catheterized Urine Culture - Preliminary Enterococcus species 12/06/23 21:41 Blood Blood Culture - Preliminary Gram positive cocci in pairs 12/06/23 21:05 Blood Blood Culture - Preliminary Patient Feedback: Patient satisfied with anesthetic care.
--- NOTE | 2023-12-08 08:12 | P.PNIM_ITS ---
Progress Note: A&P Assessment and Plan (1) Sepsis: Code(s): A41.9 - Sepsis, unspecified organism Status: Acute Assessment and Plan: 12/07/23: * Meeting sepsis criteria with HR of , RR 22-24, temp 100.4, elevated WBC, and known source of infection/UTI * Patient was given 2 L normal saline in the ED and started on IVF at 75 mL/hour * WBC 21.2 initially, now 22.5, Lactic acid 1.5 * Blood cultures obtained in her pending, currently showing no growth to date on preliminary read * UA showing 2+ protein 2+ blood 2+ leukocytes, greater than 100 urine WBCs, rare bacteria, negative nitrate * Urine cultures pending * Will change Rocephin 1 g 2 Rocephin 2 g Q 24 hours * Chest x-ray was negative * Head CT was negative for any acute intracranial abnormality 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 * She is still on 3 L nasal cannula * White blood cell count is 18.7 today * Urine culture showing Enterococcus species * Rocephin switched to ampicillin today * Blood cultures are showing Gram-positive cocci in pairs and 1 out of the 2 vials preliminary read, likely contaminant. * Ultrasound of gallbladder showed cholelithiasis without any obstruction, common bile duct measuring 3 mm, gallbladder distension is likely secondary to fasting. Patient does not complain any upper abdominal pain or symptoms of an acute cholecystitis (2) Acute UTI: Code(s): N39.0 - Urinary tract infection, site not specified Status: Acute Assessment and Plan: 11/05/23: ADMIT TO REGULAR MEDICAL FLOOR STARTED ON ANTIBIOTICS CULTURES IN PROGRESS SUPPORTIVE CARE 11/06/23: * * WBC 22.5 * Blood culture showing no growth on preliminary read * UA showed 2+ protein, 2+ urine blood, 2+ leukocytes, greater than 100 urine wbc's, 21-50 urine RBCs, rare urine bacteria, nitrates were negative * Urine cultures pending * Increase to 2 g Rocephin daily * Status post cystoscopy with right ureteral stent placement * Continue with Yuen, currently draining pink tinged urine * Continue cardiac monitoring * Continue with SCDs * Magnesium 1.4, will give 3 g of Mag today * Continue pain control 11/07/23: * Cell count done 18.7 * Urine culture showing Enterococcus species * Rocephin changed to ampicillin today * Blood culture showing Gram-positive cocci in pair and 1/2 vials on preliminary read, likely contaminant * Patient is postop day 1 from a cystoscopy with right ureteral stent placement * Yuen catheter remains in place (3) Altered mental status: Code(s): R41.82 - Altered mental status, unspecified Status: Acute Assessment and Plan: RESOLVED LIKELY SECONDARY TO 1. 11/06/23: * Alert to voice and oriented x1, however she is in the PACU status post cystoscopy * Will reassess in the morning 11/07/23: * (4) Chronic hypoxic respiratory failure: Code(s): J96.11 - Chronic respiratory failure with hypoxia Status: Acute Assessment and Plan: ON SUPPLEMENTAL OXYGEN BY NASAL CANNULA 11/06/23: * Currently on 2 L nasal cannula * Wheezing noted bilaterally throughout all lung tamayo * Will put in DuoNebs q.6 hours 11/07/23: * Currently on 3 L nasal cannula * Will c
--- NOTE | 2023-12-08 08:12 | PM.IMPN ---
Progress Note: A&P Assessment and Plan (1) Sepsis: Code(s): A41.9 - Sepsis, unspecified organism Status: Acute Assessment and Plan: 12/07/23: Meeting sepsis criteria with HR of , RR 22-24, temp 100.4, elevated WBC, and known source of infection/UTI Patient was given 2 L normal saline in the ED and started on IVF at 75 mL/hour WBC 21.2 initially, now 22.5, Lactic acid 1.5 Blood cultures obtained in her pending, currently showing no growth to date on preliminary read UA showing 2+ protein 2+ blood 2+ leukocytes, greater than 100 urine WBCs, rare bacteria, negative nitrate Urine cultures pending Will change Rocephin 1 g 2 Rocephin 2 g Q 24 hours Chest x-ray was negative Head CT was negative for any acute intracranial abnormality 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 CT of the abdomen pelvis showed a dilated right ureter that terminated into the area of soft tissue likely acting as a source of obstruction, moderate right hydronephrosis, severely thickened irregular bladder wall, severely distended gallbladder 12/08/23: Heart rate remains in the low 100s, we will go ahead and check a D-dimer today. She is still on 3 L nasal cannula White blood cell count is 18.7 today Urine culture showing Enterococcus species Rocephin switched to ampicillin today Blood cultures are showing Gram-positive cocci in pairs and 1 out of the 2 vials preliminary read, likely contaminant. Ultrasound of gallbladder showed cholelithiasis without any obstruction, common bile duct measuring 3 mm, gallbladder distension is likely secondary to fasting. Patient does not complain any upper abdominal pain or symptoms of an acute cholecystitis (2) Acute UTI: Code(s): N39.0 - Urinary tract infection, site not specified Status: Acute Assessment and Plan: 11/05/23: ADMIT TO REGULAR MEDICAL FLOOR STARTED ON ANTIBIOTICS CULTURES IN PROGRESS SUPPORTIVE CARE 11/06/23: WBC 22.5 Blood culture showing no growth on preliminary read UA showed 2+ protein, 2+ urine blood, 2+ leukocytes, greater than 100 urine wbc's, 21-50 urine RBCs, rare urine bacteria, nitrates were negative Urine cultures pending Increase to 2 g Rocephin daily Status post cystoscopy with right ureteral stent placement Continue with Yuen, currently draining pink tinged urine Continue cardiac monitoring Continue with SCDs Magnesium 1.4, will give 3 g of Mag today Continue pain control 11/07/23: Cell count done 18.7 Urine culture showing Enterococcus species Rocephin changed to ampicillin today Blood culture showing Gram-positive cocci in pair and 1/2 vials on preliminary read, likely contaminant Patient is postop day 1 from a cystoscopy with right ureteral stent placement Yuen catheter remains in place (3) Altered mental status: Code(s): R41.82 - Altered mental status, unspecified Status: Acute Assessment and Plan: RESOLVED LIKELY SECONDARY TO 1. 11/06/23: Alert to voice and oriented x1, however she is in the PACU status post cystoscopy Will reassess in the morning 11/07/23: (4) Chronic hypoxic respiratory failure: Code(s): J96.11 - Chronic respiratory failure with hypoxia Status: Acute Assessment and Plan: ON SUPPLEMENTAL OXYGEN BY NASAL CANNULA 11/06/23: Currently on 2 L nasal cannula Wheezing noted bilaterally throughout all lung tamayo Will put in DuoNebs q.6 hours 11/07/23: Currently on 3 L nasal cannula Will check a D-dimer today as her heart rate has remained elevated her entire hospital stay so far Continue DuoNebs (5) COPD with emphysema: Code(s): J43.9 - Emphysema, unspecified Status: Acute Assessment and Plan: CONTINUE HOME MEDS NOT ACTIVELY WHEEZING 11/06/23: Wheezing noted today Neb treatments started 11/07/23: No change to current treatment plan Time Spent With Patient Time with patient: 25 - 35 minutes Subjective Date/
[2023-12-08] MEDS: AMPICILLIN 2 GM/NS 100 ML 2 GM/100 ML BAG IVPB ×4 (09:53→20:29)
[2023-12-08] MEDS: GABAPENTIN 300 MG CAPSULE PO ×3 (09:53→17:14)
[2023-12-08] MEDS: ATORVASTATIN 40 MG TABLET PO (09:53)
[2023-12-08] MEDS: ACETAMINOPHEN 325 MG TABLET 650 MG PO (09:56)
[2023-12-08 10:51] LABS: D Dimer 3.56 ug/mL (<0.48)
[2023-12-08] MEDS: TOPIRAMATE 25 MG TABLET 50 MG PO (11:24)
[2023-12-08] MEDS: oxyCODONE/ACETAMINOPHEN (*CRX) 5-325 MG TABLET 1 TABLET PO ×2 (17:27→21:56)
[2023-12-09] VITALS (16 sets, daily range): BP systolic 108–125; BP diastolic 53–60; PULSE 97–126; RESP 18–20; TEMP 36.3–36.9; O2SAT 95–100
[2023-12-09] MEDS: AMPICILLIN 2 GM/NS 100 ML 2 GM/100 ML BAG IVPB ×4 (00:58→17:42)
[2023-12-09] MEDS: oxyCODONE/ACETAMINOPHEN (*CRX) 5-325 MG TABLET 1 TABLET PO ×4 (03:35→22:37)
[2023-12-09 06:39] LABS: Hematocrit 30.5 % (37.0-47.0); Hemoglobin 8.8 g/dL (12.0-15.0); Immature Platelet Fraction Pct 5.9 % (0.9-11.2); Mean Corpuscular HGB Conc 28.9 g/dl (32-36); Mean Corpuscular Hemoglobin 25.1 pg (26-34); Mean Corpuscular Volume 87.1 fl (80-100); Mean Platelet Volume 11.3 fl (7.4-10.4); Platelet Count Result 137 k/mm3 (150-375); Red Cell Distribution Width 15.5 % (11.5-14.5)
[2023-12-09 06:50] LABS: Alanine Aminotransferase 10 U/L (6-35); Albumin Level 3.5 g/dL (3.5-5.1); Alkaline Phosphatase 106 U/L (38-126); Anion Gap 4 mmol/L (4-12); Aspartate Amino Transferase 17 U/L (14-36); Bilirubin,Total 0.3 mg/dL (0.2-1.3); Blood Urea Nitrogen 14 mg/dL (7-17); Calcium 8.4 mg/dL (8.4-10.2); Carbon Dioxide 34 mmol/L (22-30); Chloride 100 mmol/L (98-107); Estimated Glomerular Filt Rate > 60; Glucose 155 mg/dL (65-110); Potassium 3.5 mmol/L (3.4-5.0); Sodium 138 mmol/L (137-145)
[2023-12-09] MEDS: IPRATROPIUM 0.5 MG/ALBUTEROL SULFATE 2.5 MG AMPUL.NEB 3 ML INHALATION ×3 (08:44→20:10)
[2023-12-09] MEDS: GABAPENTIN 300 MG CAPSULE PO ×3 (10:02→17:41)
[2023-12-09] MEDS: ATORVASTATIN 40 MG TABLET PO (10:02)
[2023-12-09] MEDS: TOPIRAMATE 25 MG TABLET 50 MG PO (10:02)
--- NOTE | 2023-12-09 11:38 | P.PNIM_ITS ---
Progress Note: A&P Assessment and Plan (1) Sepsis: Code(s): A41.9 - Sepsis, unspecified organism Status: Acute Assessment and Plan: 12/07/23: * Meeting sepsis criteria with HR of , RR 22-24, temp 100.4, elevated WBC, and known source of infection/UTI * Patient was given 2 L normal saline in the ED and started on IVF at 75 mL/hour * WBC 21.2 initially, now 22.5, Lactic acid 1.5 * Blood cultures obtained in her pending, currently showing no growth to date on preliminary read * UA showing 2+ protein 2+ blood 2+ leukocytes, greater than 100 urine WBCs, rare bacteria, negative nitrate * Urine cultures pending * Will change Rocephin 1 g 2 Rocephin 2 g Q 24 hours * Chest x-ray was negative * Head CT was negative for any acute intracranial abnormality 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 * She is still on 3 L nasal cannula * White blood cell count is 18.7 today * Urine culture showing Enterococcus species * Rocephin switched to ampicillin today * Blood cultures are showing Gram-positive cocci in pairs and 1 out of the 2 vials preliminary read, likely contaminant. * Ultrasound of gallbladder showed cholelithiasis without any obstruction, common bile duct measuring 3 mm, gallbladder distension is likely secondary to fasting. Patient does not complain any upper abdominal pain or symptoms of an acute cholecystitis 12/09/23: * Urine culture showing Enterococcus species on final read * Blood culture showing Enterococcus faecalis and 1/2 vials on preliminary read * Continue ampicillin * Will recheck blood cultures today (2) Acute UTI: Code(s): N39.0 - Urinary tract infection, site not specified Status: Acute Assessment and Plan: 11/05/23: ADMIT TO REGULAR MEDICAL FLOOR STARTED ON ANTIBIOTICS CULTURES IN PROGRESS SUPPORTIVE CARE 11/06/23: * * WBC 22.5 * Blood culture showing no growth on preliminary read * UA showed 2+ protein, 2+ urine blood, 2+ leukocytes, greater than 100 urine wbc's, 21-50 urine RBCs, rare urine bacteria, nitrates were negative * Urine cultures pending * Increase to 2 g Rocephin daily * Status post cystoscopy with right ureteral stent placement * Continue with Yuen, currently draining pink tinged urine * Continue cardiac monitoring * Continue with SCDs * Magnesium 1.4, will give 3 g of Mag today * Continue pain control 11/07/23: * Cell count done 18.7 * Urine culture showing Enterococcus species * Rocephin changed to ampicillin today * Blood culture showing Gram-positive cocci in pair and 1/2 vials on preliminary read, likely contaminant * Patient is postop day 1 from a cystoscopy with right ureteral stent placement * Yuen catheter discontinued 11/08/2023: * White blood cell count up to 11.0 * Urine culture showing Enterococcus species on final read * Blood culture showing Enterococcus faecalis in 1/2 vials on preliminary read * We will get new blood cultures today * Continue with ampicillin IV for now * Patient is voiding without difficulty (3) Altered mental status: Code(s): R41.82 - Altered mental status, unspecified Status: Acute Assessment and Plan: RESOLVED LIKELY SECONDARY TO 1. 11/06/23: * Alert to voice and oriented x
--- NOTE | 2023-12-09 11:38 | PM.IMPN ---
Progress Note: A&P Assessment and Plan (1) Sepsis: Code(s): A41.9 - Sepsis, unspecified organism Status: Acute Assessment and Plan: 12/07/23: Meeting sepsis criteria with HR of , RR 22-24, temp 100.4, elevated WBC, and known source of infection/UTI Patient was given 2 L normal saline in the ED and started on IVF at 75 mL/hour WBC 21.2 initially, now 22.5, Lactic acid 1.5 Blood cultures obtained in her pending, currently showing no growth to date on preliminary read UA showing 2+ protein 2+ blood 2+ leukocytes, greater than 100 urine WBCs, rare bacteria, negative nitrate Urine cultures pending Will change Rocephin 1 g 2 Rocephin 2 g Q 24 hours Chest x-ray was negative Head CT was negative for any acute intracranial abnormality 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 CT of the abdomen pelvis showed a dilated right ureter that terminated into the area of soft tissue likely acting as a source of obstruction, moderate right hydronephrosis, severely thickened irregular bladder wall, severely distended gallbladder 12/08/23: Heart rate remains in the low 100s, we will go ahead and check a D-dimer today. She is still on 3 L nasal cannula White blood cell count is 18.7 today Urine culture showing Enterococcus species Rocephin switched to ampicillin today Blood cultures are showing Gram-positive cocci in pairs and 1 out of the 2 vials preliminary read, likely contaminant. Ultrasound of gallbladder showed cholelithiasis without any obstruction, common bile duct measuring 3 mm, gallbladder distension is likely secondary to fasting. Patient does not complain any upper abdominal pain or symptoms of an acute cholecystitis 12/09/23: Urine culture showing Enterococcus species on final read Blood culture showing Enterococcus faecalis and 1/2 vials on preliminary read Continue ampicillin Will recheck blood cultures today (2) Acute UTI: Code(s): N39.0 - Urinary tract infection, site not specified Status: Acute Assessment and Plan: 11/05/23: ADMIT TO REGULAR MEDICAL FLOOR STARTED ON ANTIBIOTICS CULTURES IN PROGRESS SUPPORTIVE CARE 11/06/23: WBC 22.5 Blood culture showing no growth on preliminary read UA showed 2+ protein, 2+ urine blood, 2+ leukocytes, greater than 100 urine wbc's, 21-50 urine RBCs, rare urine bacteria, nitrates were negative Urine cultures pending Increase to 2 g Rocephin daily Status post cystoscopy with right ureteral stent placement Continue with Yuen, currently draining pink tinged urine Continue cardiac monitoring Continue with SCDs Magnesium 1.4, will give 3 g of Mag today Continue pain control 11/07/23: Cell count done 18.7 Urine culture showing Enterococcus species Rocephin changed to ampicillin today Blood culture showing Gram-positive cocci in pair and 1/2 vials on preliminary read, likely contaminant Patient is postop day 1 from a cystoscopy with right ureteral stent placement Yuen catheter discontinued 11/08/2023: White blood cell count up to 11.0 Urine culture showing Enterococcus species on final read Blood culture showing Enterococcus faecalis in 1/2 vials on preliminary read We will get new blood cultures today Continue with ampicillin IV for now Patient is voiding without difficulty (3) Altered mental status: Code(s): R41.82 - Altered mental status, unspecified Status: Acute Assessment and Plan: RESOLVED LIKELY SECONDARY TO 1. 11/06/23: Alert to voice and oriented x1, however she is in the PACU status post cystoscopy Will reassess in the morning 11/07/23: She is alert oriented x3 Resolved (4) Chronic hypoxic respiratory failure: Code(s): J96.11 - Chronic respiratory failure with hypoxia Status: Acute Assessment and Plan: ON SUPPLEMENTAL OXYGEN BY NASAL CANNULA 11/06/23: Currently on 2 L nasal cannula Wheezing noted bilaterally throughout all lung tmaayo Will put in
[2023-12-09] MEDS: MELATONIN 5 MG TABLET PO (20:52)
[2023-12-10] VITALS (11 sets, daily range): BP systolic 125–129; BP diastolic 48–65; PULSE 106–130; RESP 18–20; TEMP 36.5–36.6; O2SAT 96–100
[2023-12-10] MEDS: AMPICILLIN 2 GM/NS 100 ML 2 GM/100 ML BAG IVPB ×3 (00:04→11:56)
[2023-12-10] MEDS: IPRATROPIUM 0.5 MG/ALBUTEROL SULFATE 2.5 MG AMPUL.NEB 3 ML INHALATION ×2 (02:34→07:52)
[2023-12-10] MEDS: oxyCODONE/ACETAMINOPHEN (*CRX) 5-325 MG TABLET 1 TABLET PO ×2 (05:46→11:56)
[2023-12-10 05:50] LABS: Hematocrit 32.5 % (37.0-47.0); Hemoglobin 9.2 g/dL (12.0-15.0); Immature Platelet Fraction Pct 6.2 % (0.9-11.2); Mean Corpuscular HGB Conc 28.3 g/dl (32-36); Mean Corpuscular Hemoglobin 24.9 pg (26-34); Mean Corpuscular Volume 88.1 fl (80-100); Mean Platelet Volume 11.6 fl (7.4-10.4); Platelet Count Result 130 k/mm3 (150-375); Red Blood Count 3.69 M/mm3 (4.2-5.4); Red Cell Distribution Width 15.6 % (11.5-14.5); White Blood Count 9.6 K/mm3 (4.5-10.0)
[2023-12-10 06:03] LABS: Alanine Aminotransferase 11 U/L (6-35); Albumin Level 3.7 g/dL (3.5-5.1); Alkaline Phosphatase 98 U/L (38-126); Anion Gap 6 mmol/L (4-12); Aspartate Amino Transferase 17 U/L (14-36); Bilirubin,Total 0.4 mg/dL (0.2-1.3); Blood Urea Nitrogen 14 mg/dL (7-17); Calcium 9.2 mg/dL (8.4-10.2); Carbon Dioxide 29 mmol/L (22-30); Chloride 103 mmol/L (98-107); Estimated Glomerular Filt Rate > 60; Glucose 150 mg/dL (65-110); Potassium 3.4 mmol/L (3.4-5.0); Sodium 138 mmol/L (137-145)
[2023-12-10] MEDS: ATORVASTATIN 40 MG TABLET PO (08:09)
[2023-12-10] MEDS: GABAPENTIN 300 MG CAPSULE PO ×2 (08:09→11:56)
[2023-12-10] MEDS: TOPIRAMATE 25 MG TABLET 50 MG PO (08:12)
[2023-12-10] MEDS: METOPROLOL TARTRATE INJ 5 MG/5 ML VIAL 2.5 MG IV PUSH (13:45)
--- NOTE | 2023-12-10 15:25 | PM.DS ---
DS: Admitting Diagnosis Discharge Date December 10, 2023 Admitting Diagnosis Altered mental status DS: Discharge Diagnosis Discharge Diagnosis (1) Retroperitoneal fibrosis: Code(s): K68.2 - Retroperitoneal fibrosis Status: Acute (2) Sepsis: Code(s): A41.9 - Sepsis, unspecified organism Status: Acute (3) Urinary tract infection: Code(s): N39.0 - Urinary tract infection, site not specified Status: Acute (4) Hydronephrosis, right: Code(s): N13.30 - Unspecified hydronephrosis Status: Acute (5) Tobacco dependence: Code(s): F17.200 - Nicotine dependence, unspecified, uncomplicated Status: Acute (6) COPD with emphysema: Code(s): J43.9 - Emphysema, unspecified Status: Acute (7) Chronic hypoxic respiratory failure: Code(s): J96.11 - Chronic respiratory failure with hypoxia Status: Acute (8) Altered mental status: Code(s): R41.82 - Altered mental status, unspecified Status: Acute (9) Acute UTI: Code(s): N39.0 - Urinary tract infection, site not specified Status: Acute DS: Summary Hospital Course Hospital Course: 68-year-old female with past medical history chronic and active tobacco abuse, chronic respiratory failure with hypoxia, COPD, chronic pain, chronic opioid use, cervical cancer status post radiation with diverting colostomy presented with altered mental status. She was treated for sepsis with increased respiratory rate altered mental status mild febrile illness leukocytosis secondary to UTI with Enterococcus species sensitive to ampicillin vancomycin and nitrofurantoin. She had subsequent improvement and returned to her baseline and therefore discharged to home in stable condition on 12/10/2023. Of note, 1 blood culture out of a set grew Enterococcus faecalis. Was likely a contaminant as her sepsis resolved and repeat blood cultures so far negative. She is discharged home on another 7 days of Macrobid 100 mg p.o. b.i.d.. As for her chronic respiratory failure with hypoxia and 2 L nasal cannula use at home she had an episode of wheezing but otherwise it was uneventful. The patient had sinus tachycardia up to 120 heart rate. Dimer was elevated so a CTA of chest was performed which did not demonstrate a PE. She was also receiving albuterol nebs which may have complicated this. The patient a lifetime of sinus tachycardia but for some reason was taking off metoprolol. She was given metoprolol IV 2.5 mg x 1 and responded very well rate coming down into the 90s. Therefore she will be discharged on metoprolol succinate 12.5 mg p.o. q.day she is very anxious to leave and will not allow further workup on this matter. On that note, patient has conflicting history reporting and it appears she has not seen her PCP in a long time is only seeing her pain doctor. She was educated on the importance of medical compliance and following up with her PCP within a week and she understood and agreed to this. Adverse effects risk and benefits of medications were discussed as well. As well, patient was found to have right-sided hydronephrosis and retroperitoneal fibrosis. On 12/07/2023 she underwent cystoscopy bilateral retrograde pyelography right ureteroscopy and right ureteral stent placement with bladder biopsy. She is to follow-up in 3 4 weeks with Urology for possibly permanent stent placement. She was again educated on the importance of follow-up here. She is also advised to follow up with Oncology for this retroperitoneal fibrosis. She prefers to do so through her PCP. Patient was full code during her admission. Time Spent with Patient Time attestation: Total time spent providing and/or coordinating discharge services: Exam Const: General: cooperative and no acute distress Resp: Effort & Inspection: normal respiratory effort Auscultation: clear to auscultation bilaterally Cardio: Rate: regular rate Rhythm: regular rh
== END 2023-12-10 17:10 | disposition home or self-care (01) | DRG 853 ==
LOC: ANHED 23:37 → ANH3MEDSUR 12-07 00:28
PROVIDERS: Emergency Medicine; Nurse Practitioner Acute Care; Urology; Admitting Provider Internal Medicine; Emergency Provider Emergency Medicine; Visit Provider General Practice
PROC: 0T768DZ Dilation of Right Ureter with Intraluminal Device, Via Natural or Artificial Opening Endoscopic (ICD-10-PCS; CPT 52352; principal; 2023-12-07 15:15)
DX: A41.81 Sepsis due to Enterococcus (principal); K68.2 Retroperitoneal fibrosis; N39.0 Urinary tract infection, site not specified; J96.11 Chronic respiratory failure with hypoxia; N13.30 Unspecified hydronephrosis; K80.20 Calculus of gallbladder without cholecystitis without obstruction; J43.9 Emphysema, unspecified; Z20.822 Contact with and (suspected) exposure to COVID-19; F17.210 Nicotine dependence, cigarettes, uncomplicated; Z99.81 Dependence on supplemental oxygen; Z85.41 Personal history of malignant neoplasm of cervix uteri
CPT/HCPCS: 36415; 70450; 71045; 71275; 74177; 74420; 76705; 80053; 80307; 81001; 82948; 83605; 83735; 84145; 84484; 85025; 85027; 85055; 85380; 85610; 85730; 87040; 87077; 87086; 87088; 87181; 87637; 88305; 88342; 93005; 94640; 96361; 96365; 99285; A9270; C1758; C1769; C2617; G0378; J0290; J0696; J1100; J2405; J2704; J3475; J7030; J7120; Q9966; Q9967

== ENCOUNTER 2024-04-04 15:48 | Inpatient (IN) | payer MEDICARE, MEDICAID, SELFPAY ==
[2024-04-04] VITALS (38 sets, daily range): BP systolic 116–150; BP diastolic 53–84; PULSE 109–130; RESP 14–33; TEMP 36.4–37.3; O2SAT 95–100; BMI 22.1
--- NOTE | ~2024-04-04 | CT_ITS ---
CT brain wo con Ordering provider: Reuben Arias MD History: 68 years Female with . AMS . Comparison: October 07, 2023 Technique: CT of the head without contrast. Radiation reduction technique utilized. DLP is 605.33 mGy-cm. FINDINGS: BRAIN PARENCHYMA AND CSF SPACES: Old infarct in the right occipital area with encephalomalacia. No mi dline shift, mass effect or hemorrhage. The brain parenchyma and CSF spaces are otherwise normal. VISUALIZED PARANASAL SINUSES: Well aerated. MASTOIDS: Well aerated. BONES: The bones appear intact. SOFT TISSUES: Visualized nasopharynx is normal. Superficial soft tissues are normal. IMPRESSION: No acute intracranial findings. Old infarct in the right occipital lobe. Reviewed, dictated and finalized at location A.
--- NOTE | ~2024-04-04 | CT_ITS ---
CT abdomen pelvis w con Ordering provider: Reuben Arias MD History: 68 years Female with . AMS, hx rectal ca, sepsis . Comparison: December 06, 2023 Technique: CT abdomen and pelvis with IV and without oral contrast. Automated exposure control and it erative reconstruction technique were employed. The dose-length product was 449.12 mGy-cm. 100 mL Omn ipaque 350 was given IV. Findings: VISUALIZED LOWER CHEST: Normal. UPPER ABDOMINAL ORGANS: Liver: Mild fat infiltration. Gallbladder: Distended gallbladder with no definite stones. Slight hypertrophy of the left lobe. Spleen: Normal. Stomach/duodenum: Normal. Pancreas: Atrophic. Adrenals: Normal. Kidneys: Right kidney midpole cyst measuring 1.4 cm. Right double-J stent with a slight thickening of the wall of the renal pelvis which may indicate inflammatory change. Minimal fullness of the left re nal pelvis. PELVIC ORGANS: The bladder shows thickened wall. BOWEL AND MESENTERY: Colon: Left colostomy is noted with adjacent anterior abdominal wall hernia containing small bowel lo ops. No obstruction is seen.. Normal appendix. Small Bowel: Normal. No obstruction. Peritoneum/mesentery: An abscess is seen in the right side of the pelvis posteriorly measuring 4.8 x 1.4 cm. Inflammatory changes are also seen in both sides of pelvis posteriorly. No free air or free f luid. No mesenteric lymphadenopathy. RETROPERITONEUM: Mild atheromatous disease of the abdominal aorta. No retroperitoneal lymphadenopat hy. MUSCULOSKELETAL: Superficial soft tissues: Left anterior abdominal wall hernia. The superficial soft tissues are debbie l. Bones: Age appropriate degenerative changes of the spine. IMPRESSION: 1. An abscess in the right side of the pelvis posteriorly with emphysematous changes in both sides o f the pelvis posteriorly. 2. Right double-J stent slight thickening of the wall of the renal pelvis which may indicate inflamm atory changes. Minimal fullness of the left renal pelvis. 3. Left anterior abdominal wall hernia with small bowel content. Adjacent left colostomy is noted. 4. Thickened wall of the gallbladder which may indicate cystitis. Further evaluation advised Reviewed, dictated and finalized at location A. IMPRESSION: 1. An abscess in the right side of the pelvis posteriorly with emphysematous c hanges in both sides of the pelvis posteriorly. 2. Right double-J stent slight thickening of the wall of the renal pelvis whic h may indicate inflammatory changes. Minimal fullness of the left renal pelvis. 3. Left anterior abdominal wall hernia with small bowel content. Adjacent left colostomy is noted. 4. Thickened wall of the gallbladder which may indicate cystitis. Further eval uation advised
--- NOTE | ~2024-04-04 | XR_ITS ---
EXAMINATION: XR chest 1V portable DATE: 04/04/2024 17:05 INDICATION: Altered mental status. TECHNIQUE: A single frontal view of the chest was obtained. COMPARISON: Chest single view 12/06/2023, chest CT 12/08/2023 FINDINGS: The lungs are hyperexpanded with lucencies, consistent with emphysema. No pleural effusion or pneumothorax. The heart size is normal. There is a right internal jugular port with tip at superio r cavoatrial junction. IMPRESSION: 1. Emphysema. Reviewed, dictated and finalized at location A. IMPRESSION: 1. Emphysema.
--- NOTE | ~2024-04-04 | CT_ITS ---
EXAMINATION: CT pelvis wo con DATE: 04/05/2024 12:09 INDICATION: Pelvic abscess. TECHNIQUE: Computed tomography (CT) of the pelvis was performed without intravenous contrast. Automat ed exposure control and iterative reconstruction technique were employed. The dose-length product was 55.75 mGy-cm. COMPARISON: CT abdomen and pelvis 04/04/2024, 12/06/23 FINDINGS: There are no dilated loops of bowel. There is a right internal ureteral stent in expected p osition. There is contrast in the bladder from the recent CT. There are changes of resection of the r ectum. In the perirectal surgical bed, there is a 4.3 x 0.7 cm fluid collection containing gas and co ntrast. The fluid collection abuts the right ureter. There is no free intraperitoneal fluid. There ar e no pathologically enlarged lymph nodes. There is mild osteoporosis of the hips. IMPRESSION: 1. 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 In the prone position, the fluid collection is mildly decreased in size from 04/04/2024. Reviewed, dictated and finalized at location A. IMPRESSION: 1. 4.3 x 0.7 cm chronic pelvic fluid collection with fistula to the right urete r, consistent with a urinoma. In the prone position, the fluid collection is mi ldly decreased in size from 04/04/2024.
--- NOTE | ~2024-04-04 | XR_ITS ---
EXAMINATION: XR retrograde pyelo w/stent RT DATE: 04/09/2024 14:40 CDT INDICATION: RIGHT CYSTO, RETRO, STENT EXCHANGE . TECHNIQUE: 7 fluoroscopic images and multiple cine clips of the right abdomen and pelvis were obtaine d during right retrograde pyelography and cystography, stent exchange, performed by Dr. Sena. I was not present during the procedure. Fluoroscopy exposure time was 49.4 seconds. Air Kerma 12.28 mGy. D AP 0.03508 mGym2. COMPARISON: None FINDINGS/IMPRESSION: Fluoroscopic documentation of right retrograde pyelography and cystography, stent exchange. Please re wyatt to the operative note for complete procedural details. Reviewed, dictated and finalized at location K.
--- NOTE | 2024-04-04 16:14 | ECG_ITS ---
Test Date: 2024-04-04 16:04:54 Measurements Intervals [place] Rate: 130 P: 81 MD: 130 QRS: 91 QRSD: 116 T: 44 QT: 332 QTc: 488 Interpretive Statements SINUS TACHYCARDIA RIGHT BUNDLE BRANCH BLOCK RIGHT ATRIAL ENLARGED ABNORMAL ECG No previous ECG available for comparison Electronically Signed On 04-05-2024 13:36:25 CDT by Nadeem Hancock M.D.
[2024-04-04 16:39] LABS: Basophils Absolute Auto 0.1 K/mm3 (0.0-0.1); Basophils Percent Auto 0.5 % (0.2-1.2); Eosinophils Percent Auto 0.3 % (0-4.4); Hematocrit 38.8 % (37.0-47.0); Hemoglobin 11.6 g/dL (12.0-15.0); Immature Granulocyte Absolute 0.05 K/mm3 (0.00-0.031); Immature Granulocyte Percent A 0.5 % (0-0.5); Lymphocytes Percent Auto 9.2 % (18.3-44.2); Mean Corpuscular HGB Conc 29.9 g/dl (32-36); Mean Corpuscular Hemoglobin 24.5 pg (26-34); Mean Corpuscular Volume 81.9 fl (80-100); Mean Platelet Volume 9.9 fl (7.4-10.4); Monocytes Absolute Auto 0.4 K/mm3 (0.1-0.6); Monocytes Percent Auto 3.8 % (2.6-8.5); Neutrophils Absolute Auto 9.3 K/mm3 (1.3-6.7); Neutrophils Percent Auto 85.7 % (45.5-73.1); Platelet Count Result 450 k/mm3 (150-375); Red Blood Count 4.74 M/mm3 (4.2-5.4); Red Cell Distribution Width 15.4 % (11.5-14.5); White Blood Count 10.9 K/mm3 (4.5-10.0)
[2024-04-04] MEDS: LACTATED RINGERS 999 ML IV CONT ×2 (16:50→18:02)
[2024-04-04 16:51] LABS: INR 1.5; Lactic Acid Reflex 3.4 mmol/L (0.7-2.0); Prothrombin Time 18.1 Seconds (11.1-14.7)
[2024-04-04] MEDS: SODIUM CHLORIDE 0.9% IV 1,000 ML 999 ML (16:51)
[2024-04-04 16:52] LABS: Anisocytosis 1+; Hypochromasia 1+; Partial Thromboplastin Time 39.6 Seconds (22.3-36.8); Platelet Estimate Slightly Increased (Adequate)
[2024-04-04 16:53] LABS: Alanine Aminotransferase 12 U/L (6-35); Albumin Level 4.1 g/dL (3.5-5.1); Alkaline Phosphatase 158 U/L (38-126); Anion Gap 19 mmol/L (4-12); Aspartate Amino Transferase 17 U/L (14-36); Bilirubin,Total 0.6 mg/dL (0.2-1.3); Blood Urea Nitrogen 22 mg/dL (7-17); CRP 8.7 mg/dL (<1.0); Calcium 9.6 mg/dL (8.4-10.2); Carbon Dioxide 23 mmol/L (22-30); Chloride 103 mmol/L (98-107); Estimated CRCL calculation 35 ml/min; Estimated Glomerular Filt Rate 55; Glucose 155 mg/dL (65-110); Potassium 3.5 mmol/L (3.4-5.0); Schistocytes None Seen; Sodium 145 mmol/L (137-145)
[2024-04-04 16:56] LABS: Add Urine Microscopic? YES; Appearance Urine Cloudy (Clear); Bacteria Urine None Seen /hpf; Bilirubin Urine Negative (Negative); Blood Urine 2+ (Negative); Color Urine Yellow (Yellow); Glucose Urine UA Negative (Negative); Ketones Urine 3+ mg/dL (Negative); Leukocyte Esterase Ur 1+ LEU/UL (Negative); Need Manual Microscopic Reviewed; Nitrate Urine Negative (Negative); Protein Urine 3+ mg/dL (Negative); Squamous Epithelial Cell Urine Occasional /hpf (Few); WBC Urine 51-100 /hpf (0-3)
[2024-04-04 17:05] LABS: Alveolar/Arterial O2 Gradient 44.7 mmHg; Base Excess ABG -2.8 mEq/l (+/-2.0); Carboxyhemoglobin 0.1 % THb (0-2.0); Fractional Inspired Oxygen 21 %; HCO3 ABG 20.8 mEq/l (22.0-26.0); Modified Allen's Test Pass; Oxygen Content ABG 13.5 %vol (16.0-22.0); Oxygen Saturation ABG 94.1 % (95.0-100.0); Oxyhemoglobin 92.8 % THb (90.0-100.0); PCO2 ABG 31.7 mmHg (35.0-45.0); PO2 ABG 67.1 mmHg (80.0-100.0); Reduced Hemoglobin 7.1 %THb (0-5.0); Site Drawn LEFT RADIAL; Total Hemoglobin 10.3 g/dL (12.0-18.0); pH ABG 7.434 (7.350-7.450)
[2024-04-04 17:14] LABS: Acetaminophen < 10 ug/mL (10-30); Ethanol < 10 mg/dL (<10); Salicylate < 1.0 mg/dL (2-20)
[2024-04-04 17:16] LABS: SARS-CoV-2 RNA PCR Negative (Negative)
[2024-04-04 17:42] LABS: Troponin I < 0.012 ng/mL (0.000-0.034)
--- NOTE | 2024-04-04 19:06 | ED.AMS ---
HPI - Altered Mental Status General Chief Complaint: Altered Mental Status Stated Complaint: confusion Time Seen by Provider: 04/04/24 16:08 History of Present Illness HPI narrative: This is a 68-year-old female with a past medical history including prior stroke, COPD with 2 L home oxygen intermittent requirement, history of rectal cancer status post laparotomy and diverting colostomy. Patient presents to the ED today with a chief complaint of altered mental status. She is accompanied by her daughter and son who providing majority of the information is patient presently is alert oriented x1 and only intermittently responds with ?yes . Patient's son who she lives with states that for the last 2 days she has been having worsening encephalopathy, decreased p.o. intake. She normally is able to carry a conversation and is alert oriented x3 at baseline and able to take care of herself and ambulate unassisted. Today patient was not able to get up out of bed and was not answering questions appropriately prompting EMS call. Collateral information was provided by family members in the EMR. Patient is not able to meaningfully participate in history taking or examination at this time. Patient's family members are concerned that she is having another stroke. Last known well was 2 days prior. Does not take any blood thinner medications. Related Data Home Medications Medication Instructions Recorded Confirmed atorvastatin 40 mg tablet 40 mg PO DAILY 12/07/23 12/07/23 gabapentin 300 mg capsule 300 mg PO TID 12/07/23 12/07/23 nortriptyline 25 mg capsule 25 mg PO HS 12/07/23 12/07/23 oxycodone-acetaminophen 5 mg-325 1 tablet PO TID 12/07/23 12/07/23 mg tablet topiramate 50 mg tablet 50 mg PO DAILY 12/07/23 12/07/23 Allergies Allergy/AdvReac Type Severity Reaction Status Date / Time No Known Allergies Allergy Verified 04/04/24 15:59 Review of Systems Review of Systems: As reviewed above in the HPI [facility] Social History Social History Smoking packs per day: 1 Smoking cigarettes per day: 20.0 Smoking status: Current every day smoker Tobacco type: cigarettes Alcohol intake: current Substance use: never Do You Feel Safe in your Home?: Yes Lack of Transportation: No Lack of Food: Never True Current Housing: I Have Housing Concerned About Future Housing: No Difficulty Paying Gas/Electric Bills: No Difficulty Paying for Meds: No Currently Unemployed: No Education: High School Diploma/GED Difficulty w/ Childcare or Family Care: No Spiritual care concerns: No Exam Narrative: GENERAL: Ill-appearing, not in any acute distress, only answers in 1 word ?yes HEAD: [Normocephalic, atraumatic.] EYES: [PERRLA and EOMI.] 3 mm and reactive ENT: Nares clear, no rhinorrhea or epistaxis. Mucous membranes moist. NECK: Supple. CHEST: [Clear to auscultation. No respiratory distress.] HEART: [Regular rate and rhythm]. No murmur heard. [Normal peripheral pulses.] ABDOMEN: [Soft, nondistended], [nontender], [No rigidity or guarding] left-sided colostomy appears clean without any active erythema, infectious signs at the skin. Colostomy bag not present. EXTREMITIES: Normal range of motion. [No edema.] SKIN: Warm, dry, no rash. No erythema or cutaneous defects of the back NEURO: Seemingly moves all extremities but limited examination secondary to patient's level of mental status at this time. Alert to her name but not to place or time. PSYCH: Unable to fully assess Course Vital Signs Vital signs: Vital Signs Temperature 36.6 C 04/04/24 15:55 Pulse Rate 120 H 04/04/24 15:55 Respiratory Rate 16 04/04/24 15:55 Blood Pressure 134/78 04/04/24 15:55 Pulse Oximetry 95 04/04/24 15:55 Oxygen Delivery Room Air 04/04/24 15:55 Temperature 36.4 C L 04/04/24 21:26 Pulse Rate 117 H 04/04/24 21:26 Respiratory Rate 14 08/0
[2024-04-04 19:37] LABS: Reflex Lactic Acid Yes or No Add Lactic
--- NOTE | 2024-04-04 20:06 | PM.IMHP ---
H&P: HPI History of Present Illness Date/Time: 04/04/24 20:06 Chief Complaint: Altered mental status Narrative: This is a 68-year-old female with past medical history significant for colon CA, status post colectomy colostomy present, patient was brought to the emergency room due to altered mental status was confused delirious preliminary workup was significant for urinalysis numerous WBCs present, CT of abdomen and pelvis show abscess. most of the history was obtained from daughter who is at bedside patient is lethargic, delirious unable to contribute in a meaningful way to history EXAMINATION: XR chest 1V portable DATE: 04/04/2024 17:05 INDICATION: Altered mental status. TECHNIQUE: A single frontal view of the chest was obtained. COMPARISON: Chest single view 12/06/2023, chest CT 12/08/2023 FINDINGS: The lungs are hyperexpanded with lucencies, consistent with emphysema. No pleural effusion or pneumothorax. The heart size is normal. There is a right internal jugular port with tip at superior cavoatrial junction. IMPRESSION: 1. Emphysema. CT brain wo con Ordering provider: Reuben Arias MD History: 68 years Female with . AMS . Comparison: October 07, 2023 Technique: CT of the head without contrast. Radiation reduction technique utilized. DLP is 605.33 mGy-cm. FINDINGS: BRAIN PARENCHYMA AND CSF SPACES: Old infarct in the right occipital area with encephalomalacia. No midline shift, mass effect or hemorrhage. The brain parenchyma and CSF spaces are otherwise normal. VISUALIZED PARANASAL SINUSES: Well aerated. MASTOIDS: Well aerated. BONES: The bones appear intact. SOFT TISSUES: Visualized nasopharynx is normal. Superficial soft tissues are normal. IMPRESSION: No acute intracranial findings. Old infarct in the right occipital lobe. CT abdomen pelvis w con Ordering provider: Rebuen Arias MD History: 68 years Female with . AMS, hx rectal ca, sepsis . Comparison: December 06, 2023 Technique: CT abdomen and pelvis with IV and without oral contrast. Automated exposure control and iterative reconstruction technique were employed. The dose-length product was 449.12 mGy-cm. 100 mL Omnipaque 350 was given IV. Findings: VISUALIZED LOWER CHEST: Normal. UPPER ABDOMINAL ORGANS: Liver: Mild fat infiltration. Gallbladder: Distended gallbladder with no definite stones. Slight hypertrophy of the left lobe. Spleen: Normal. Stomach/duodenum: Normal. Pancreas: Atrophic. Adrenals: Normal. Kidneys: Right kidney midpole cyst measuring 1.4 cm. Right double-J stent with a slight thickening of the wall of the renal pelvis which may indicate inflammatory change. Minimal fullness of the left renal pelvis. PELVIC ORGANS: The bladder shows thickened wall. BOWEL AND MESENTERY: Colon: Left colostomy is noted with adjacent anterior abdominal wall hernia containing small bowel loops. No obstruction is seen.. Normal appendix. Small Bowel: Normal. No obstruction. Peritoneum/mesentery: An abscess is seen in the right side of the pelvis posteriorly measuring 4.8 x 1.4 cm. Inflammatory changes are also seen in both sides of pelvis posteriorly. No free air or free fluid. No mesenteric lymphadenopathy. RETROPERITONEUM: Mild atheromatous disease of the abdominal aorta. No retroperitoneal lymphadenopathy. MUSCULOSKELETAL: Superficial soft tissues: Left anterior abdominal wall hernia. The superficial soft tissues are normal. Bones: Age appropriate degenerative changes of the spine. IMPRESSION: 1. An abscess in the right side of the pelvis posteriorly with emphysematous changes in both sides of the pelvis posteriorly. 2. Right double-J stent slight thickening of the wall of the renal pelvis which may indicate inflammatory changes. Minimal fullness of the left renal pelvis. 3. Left anterior abdominal wall hernia with small bowel content. Adjacent left colostomy is noted. 4. Thickened
[2024-04-04] MEDS: VANCOMYCIN 1,250 MG/NS 250 ML 1,250 MG/250 ML BAG 166.67 MG IVPB (20:08)
[2024-04-04 20:35] LABS: Lactic Acid 0.9 mmol/L (0.7-2.0)
[2024-04-05 04:00] VITALS: BP 117/56; PULSE 97; RESP 16; TEMP 36.4; O2SAT 98
[2024-04-05] MEDS: MEROPENEM 1 GM/NS 100 ML BAG IVPB (04:26)
[2024-04-05 08:35] VITALS: O2SAT 98
--- NOTE | 2024-04-05 08:47 | PM.IMPN ---
Progress Note: A&P Assessment and Plan (1) Sepsis: Code(s): A41.9 - Sepsis, unspecified organism Status: Acute Assessment and Plan: Meets SIRS criteria: leukocytosis, lactic acidosis tachycardia, tachypnea, and suspected source of UTI/abdominal abscess/urinoma - lactic acid: 3.4 >> 0.9 on reassessment - sepsis bolus received in the ED - suspected source: UTI vs abdominal abscess vs urinoma - antibiotics: vancomycin and meropenem started on 04/05 - blood cultures drawn on 04/04: pending - UA: cloudy appearance with 3+ protein, 3+ ketones, 2+ blood, 1+ leukocytes, 11-20 RBC, 51-100 WBC - Urine culture collected on 04/04: pending - CXR: emphysema - Head CT: no acute intracranial findings. 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 - Abdomen/pelvis CT: abscess in the right side of the pelvis posteriorly with emphysematous changes in both sides of the pelvis posteriorly. Right double-J stent slight thickening of the wall of the renal pelvis which may indicate inflammatory changes. Minimal fullness of the left renal pelvis. Left anterior abdominal wall hernia with small bowel content. Adjacent left colostomy is noted. Thickened wall of the gallbladder which may indicate cystitis. 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 In the prone position, the fluid collection is mildly decreased in size from 04/04/2024. (2) Urinary tract infection: Code(s): N39.0 - Urinary tract infection, site not specified Status: Acute Assessment and Plan: - UA: cloudy appearance with 3+ protein, 3+ ketones, 2+ blood, 1+ leukocytes, 11-20 RBC, 51-100 WBC - Urine culture collected on 04/04: pending - No previous micro to be reviewed - started on meropenem 04/05, transitioned to zosyn (3) Intra-abdominal abscess: Code(s): K65.1 - Peritoneal abscess Status: Acute Assessment and Plan: Patient has history of colon cancer s/p colectomy with colostomy. Patient had a cystoscopy, bilateral retrograde pyelography, right ureteroscopy, right ureteral stent placement, bladder biopsy on 12/07/[address] Parress. - Abdomen/pelvis CT: 4.8x1.4 cm abscess in the right side of the pelvis posteriorly with emphysematous changes in both sides of the pelvis posteriorly. 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 In the prone position, the fluid collection is mildly decreased in size from 04/04/2024. - Antibiotics: Zosyn - surgery consulted, planned for a drain placement however concern for urinoma and consulted urology (4) Altered mental status: Code(s): R41.82 - Altered mental status, unspecified Status: Acute Assessment and Plan: Patient is baseline AOx4. She was AOx1 on admission. Likely due to ongoing infection. - UA: cloudy appearance with 3+ protein, 3+ ketones, 2+ blood, 1+ leukocytes, 11-20 RBC, 51-100 WBC - Urine culture collected on 04/04: pending - CXR: emphysema - Head CT: no acute intracranial findings. 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 - Abdomen/pelvis CT: abscess in the right side of the pelvis posteriorly with emphysematous changes in both sides of the pelvis posteriorly. Right double-J stent slight thickening of the wall of the renal pelvis which may indicate inflammatory changes. Minimal fullness of the left renal pelvis. Left anterior abdominal wall hernia with small bowel content. Adjacent left colostomy is noted. Thickened wall of the gallbladder which may indicate cystitis. 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 In the prone position, the fluid collection is mildly decreased in size from 04/04/2024 - Covid/flu/RSV ordered - EtOH negative Plan Hx of sinus tach on prior EKG: Continue metoprolol 12.5 mg daily HLD: atorvastatin 40 mg daily Time Spent
[2024-04-05 09:04] LABS: Basophils Absolute Auto 0.1 K/mm3 (0.0-0.1); Basophils Percent Auto 0.7 % (0.2-1.2); Eosinophils Absolute Auto 0.2 K/mm3 (0-0.3); Eosinophils Percent Auto 3.3 % (0-4.4); Hematocrit 29.2 % (37.0-47.0); Immature Granulocyte Absolute 0.03 K/mm3 (0.00-0.031); Immature Granulocyte Percent A 0.4 % (0-0.5); Lymphocytes Percent Auto 12.3 % (18.3-44.2); Mean Corpuscular HGB Conc 30.8 g/dl (32-36); Mean Corpuscular Hemoglobin 24.8 pg (26-34); Mean Corpuscular Volume 80.4 fl (80-100); Mean Platelet Volume 9.7 fl (7.4-10.4); Monocytes Absolute Auto 0.5 K/mm3 (0.1-0.6); Monocytes Percent Auto 6.4 % (2.6-8.5); Neutrophils Absolute Auto 5.6 K/mm3 (1.3-6.7); Neutrophils Percent Auto 76.9 % (45.5-73.1); Platelet Count Result 292 k/mm3 (150-375); Red Blood Count 3.63 M/mm3 (4.2-5.4); Red Cell Distribution Width 15.5 % (11.5-14.5); White Blood Count 7.3 K/mm3 (4.5-10.0)
--- NOTE | 2024-04-05 09:19 | PM.CNGS ---
Assessment and Plan Assessment and plan (1) Altered mental status: Code(s): R41.82 - Altered mental status, unspecified Status: Acute Assessment and Plan: ? etiology, suspect baseline is somewhat poor, cont workup per primary team (2) Sepsis: Code(s): A41.9 - Sepsis, unspecified organism Status: Acute Assessment and Plan: combination of pelvis abscess, UTI, will get IR perc drainage of abscess, cont IV abx (3) Intra-abdominal abscess: Code(s): K65.1 - Peritoneal abscess Status: Acute Assessment and Plan: see above (4) Urinary tract infection: Code(s): N39.0 - Urinary tract infection, site not specified Status: Acute Assessment and Plan: IV abx History of Present Illness Consult details Consult date: 04/05/24 Reason for consult: abdominal pain Requesting physician: Ewa Sanchez PA-C Narrative: The patient is a 68-year-old female with multiple medical issues that presented to the emergency department complaining of abdominal pain, mental status changes. All history is obtained via the chart, as the patient continues to be quite lethargic and confused. According to the chart, the patient been acting delirious, lethargic over the last few days. She has been complaining of some lower abdominal pain. The patient has a history of colon cancer status post colectomy and end colostomy. Review of Systems Review of Systems: ROS unobtainable: Yes unobtainable due to medical condition and unobtainable due to mental status PMFSH Social History Social History Smoking packs per day: 1 Smoking cigarettes per day: 20.0 Smoking status: Current every day smoker Tobacco type: cigarettes Second hand tobacco smoke exposure: Yes Alcohol intake: current Substance use: never Do You Feel Safe in your Home?: Yes Lack of Transportation: No Lack of Food: Never True Current Housing: I Have Housing Concerned About Future Housing: No Difficulty Paying Gas/Electric Bills: No Difficulty Paying for Meds: No Currently Unemployed: No Education: High School Diploma/GED Difficulty w/ Childcare or Family Care: No Spiritual care concerns: No Meds Home Medications and Allergies Home Medications Medication Instructions Recorded Confirmed Type atorvastatin 40 mg tablet 40 mg PO DAILY 12/07/23 04/05/24 History gabapentin 300 mg capsule 300 mg PO TID 12/07/23 04/05/24 History nortriptyline 25 mg capsule 25 mg PO HS 12/07/23 04/05/24 History oxycodone-acetaminophen 5 mg-325 1 tablet PO TID 12/07/23 04/05/24 History mg tablet topiramate 50 mg tablet 50 mg PO DAILY 12/07/23 04/05/24 History metoprolol succinate 25 mg 12.5 mg PO DAILY #30 tabs 12/10/23 04/05/24 Rx tablet,extended release 24 hr nitrofurantoin 100 mg PO Q12H 7 days #14 caps 12/10/23 04/05/24 Rx monohydrate/macrocrystals 100 mg capsule (Macrobid) Allergies Allergy/AdvReac Type Severity Reaction Status Date / Time iodine AdvReac Rash Verified 04/04/24 23:32 morphine AdvReac Dyspnea / Verified 04/04/24 23:32 SOB tramadol AdvReac Abdominal Verified 04/04/24 23:30 Pain Vital Signs Vital Signs - 24 hr 04/04/24 15:55 04/04/24 15:58 04/04/24 16:12 Temperature 36.6 C 36.7 C Pulse Rate 120 H 130 H Respiratory Rate 16 Blood Pressure 134/78 Pulse Oximetry 95 Oxygen Delivery Room Air Oxygen Flow Rate Fraction of Inspired Oxygen 04/04/24 17:00 04/04/24 18:03 04/04/24 18:25 Temperature Pulse Rate 113 H 113 H Respiratory Rate 26 H 23 H Blood Pressure 142/71 H 131/72 Pulse Oximetry 100 100 100 Oxygen Delivery Nasal Cannula Oxygen Flow Rate 2 Fraction of Inspired Oxygen 28 04/04/24 18:50 04/04/24 18:58 04/04/24 19:00 Temperature Pulse Rate 110 H Respiratory Rate 25 H Blood Pressure 148/77 H Pulse Oximetry 100 100 100 Oxygen Delivery Tl
[2024-04-05 09:48] LABS: Alanine Aminotransferase 7 U/L (6-35); Albumin Level 3.1 g/dL (3.5-5.1); Alkaline Phosphatase 110 U/L (38-126); Anion Gap 9 mmol/L (4-12); Aspartate Amino Transferase 25 U/L (14-36); Bilirubin,Total 0.4 mg/dL (0.2-1.3); Blood Urea Nitrogen 13 mg/dL (7-17); Calcium 8.6 mg/dL (8.4-10.2); Carbon Dioxide 29 mmol/L (22-30); Chloride 106 mmol/L (98-107); Estimated CRCL calculation 49 ml/min; Estimated Glomerular Filt Rate > 60; Glucose 95 mg/dL (65-110); Potassium 2.8 mmol/L (3.4-5.0); Sodium 144 mmol/L (137-145)
[2024-04-05] MEDS: PIPERACILLIN/TAZ 4.5G/NS 100ML 4.5 GM/100 ML BAG IVPB ×2 (12:54→18:54)
[2024-04-05] MEDS: POTASSIUM CHLORIDE INJ 40 MEQ in SODIUM CHLORIDE 0.9% IV 500 ML 130 MEQ IVPB (12:54)
[2024-04-05] MEDS: POTASSIUM CHLORIDE 20 MEQ ER TABLET 40 MEQ PO (12:55)
[2024-04-05 13:51] VITALS: BP 125/71; PULSE 107; RESP 18; TEMP 36.4; O2SAT 98
[2024-04-05 15:01] LABS: Influenza A QL RT-PCR Negative (Negative); Influenza B QL RT-PCR Negative (Negative); RSV RNA, RT-PCR Negative (Negative); SARS-CoV-2 RNA PCR Negative (Negative)
--- NOTE | 2024-04-05 15:35 | WPDURCON ---
Assessment and Plan Assessment and plan (1) Intra-abdominal abscess: Code(s): K65.1 - Peritoneal abscess Status: Acute Assessment and Plan: Being managed by General surgery; planning for percutaneous abscess drainage (2) Hydronephrosis, right: Code(s): N13.30 - Unspecified hydronephrosis Status: Acute Assessment and Plan: Right ureteral stent in position. Will plan for retrograde pyelogram and ureteroscopy sometime next week following abscess drainage (3) Acute UTI: Code(s): N39.0 - Urinary tract infection, site not specified Status: Acute Assessment and Plan: UA abnormal, urine culture pending. Continue empiric antibiotics while awaiting culture results. Urology Consult Note HPI Date Seen: 04/05/24 Requesting Physician: Ewa Sanchez PA-C Primary Care Provider: [employer] PHYSICIAN Consult Narrative Narrative: Anny Logan is a 68 year old female with history of colon cancer s/p diverting colostomy who was recently evaluated by Dr. Sena in 11/2023 for UTI and hydronephrosis and underwent cystoscopy, bilateral retrograde pyelogram, right ureteroscopy, and right ureteral stent placement on 12/07/23. It was recommended she follow up with oncology for evaluation of retroperitoneal fibrosis and evaluation of possible recurrence of colon cancer. She was instructed to follow up for ongoing stent management but did not do so despite multiple calls and letters initiating contact. She presented to ER on 04/04/24 due to altered mental status. On arrival, she was afebrile but was tachycardic, WBC 10.9, creatinine 1.0, UA with 1+ leukocytes and 51-[address] of abdomen/pelvis showed right pelvic abscess, right ureteral stent in position. Follow up pelvis CT completed today shows persistent pelvic collection with questionable communication with right ureter, decreased from prior CT in prone position. At the time of my evaluation, the patient is resting comfortably in bed. She is confused and not able to contribute to history. Review of Systems Review of Systems: ROS unobtainable: Yes unobtainable due to mental status PMFSH Social History Social History Smoking packs per day: 1 Smoking cigarettes per day: 20.0 Smoking status: Current every day smoker Tobacco type: cigarettes Second hand tobacco smoke exposure: Yes Alcohol intake: current Substance use: never Do You Feel Safe in your Home?: Yes Lack of Transportation: No Lack of Food: Never True Current Housing: I Have Housing Concerned About Future Housing: No Difficulty Paying Gas/Electric Bills: No Difficulty Paying for Meds: No Currently Unemployed: No Education: High School Diploma/GED Difficulty w/ Childcare or Family Care: No Spiritual care concerns: No Meds Home Medications and Allergies Home Medications Medication Instructions Recorded Confirmed Type atorvastatin 40 mg tablet 40 mg PO DAILY 12/07/23 04/05/24 History gabapentin 300 mg capsule 300 mg PO TID 12/07/23 04/05/24 History nortriptyline 25 mg capsule 25 mg PO HS 12/07/23 04/05/24 History oxycodone-acetaminophen 5 mg-325 1 tablet PO TID 12/07/23 04/05/24 History mg tablet topiramate 50 mg tablet 50 mg PO DAILY 12/07/23 04/05/24 History metoprolol succinate 25 mg 12.5 mg PO DAILY #30 tabs 12/10/23 04/05/24 Rx tablet,extended release 24 hr nitrofurantoin 100 mg PO Q12H 7 days #14 caps 12/10/23 04/05/24 Rx monohydrate/macrocrystals 100 mg capsule (Macrobid) Allergies Allergy/AdvReac Type Severity Reaction Status Date / Time iodine AdvReac Rash Verified 04/04/24 23:32 morphine AdvReac Dyspnea / Verified 04/04/24 23:32 SOB tramadol AdvReac Abdominal Verified 04/04/24 23:30 Pain Vital Signs Vital Signs - 24 hr 04/04/24 15:55 04/04/24 15:58 04/04/24 16:12 Temperature 97.8 F 98.1 F Pulse Rate 120 H 13
[2024-04-05] MEDS: CENTRAL LINE FLUSH 10 ML IV PUSH (17:12)
[2024-04-05] MEDS: VANCOMYCIN 1,250 MG/NS 250 ML 1,250 MG/250 ML BAG 166.67 MG IVPB (17:12)
[2024-04-05] MEDS: GABAPENTIN 300 MG CAPSULE PO (17:13)
[2024-04-05 19:34] LABS: Toxigenic C. Diff NEGATIVE (NEGATIVE)
[2024-04-05 20:00] VITALS: BP 131/61; PULSE 99; RESP 18; TEMP 37; O2SAT 98; O2SAT 99
[2024-04-05] MEDS: NORTRIPTYLINE HCL 25 MG CAPSULE PO (21:20)
[2024-04-05 23:34] VITALS: BP 133/68; PULSE 91; RESP 16; TEMP 36.7; O2SAT 98
[2024-04-06] VITALS (9 sets, daily range): BP systolic 95–127; BP diastolic 51–73; PULSE 88–107; RESP 16–20; TEMP 36.3–36.8; O2SAT 98–100
[2024-04-06] MEDS: PIPERACILLIN/TAZ 4.5G/NS 100ML 4.5 GM/100 ML BAG IVPB ×3 (00:43→12:33)
[2024-04-06] MEDS: CENTRAL LINE FLUSH 10 ML IV PUSH ×3 (00:43→12:31)
[2024-04-06 06:41] LABS: Basophils Absolute Auto 0.1 K/mm3 (0.0-0.1); Basophils Percent Auto 0.8 % (0.2-1.2); Eosinophils Absolute Auto 0.3 K/mm3 (0-0.3); Eosinophils Percent Auto 4.2 % (0-4.4); Hematocrit 28.2 % (37.0-47.0); Hemoglobin 8.4 g/dL (12.0-15.0); Immature Granulocyte Absolute 0.03 K/mm3 (0.00-0.031); Immature Granulocyte Percent A 0.5 % (0-0.5); Lymphocytes Absolute Auto 1.17 K/mm3 (0.9-3.2); Lymphocytes Percent Auto 18.8 % (18.3-44.2); Mean Corpuscular HGB Conc 29.8 g/dl (32-36); Mean Corpuscular Hemoglobin 24.3 pg (26-34); Mean Corpuscular Volume 81.7 fl (80-100); Mean Platelet Volume 9.4 fl (7.4-10.4); Monocytes Absolute Auto 0.6 K/mm3 (0.1-0.6); Neutrophils Absolute Auto 4.2 K/mm3 (1.3-6.7); Neutrophils Percent Auto 66.7 % (45.5-73.1); Platelet Count Result 284 k/mm3 (150-375); Red Blood Count 3.45 M/mm3 (4.2-5.4); Red Cell Distribution Width 15.7 % (11.5-14.5); White Blood Count 6.2 K/mm3 (4.5-10.0)
[2024-04-06 06:54] LABS: Alanine Aminotransferase 8 U/L (6-35); Albumin Level 3.1 g/dL (3.5-5.1); Alkaline Phosphatase 96 U/L (38-126); Anion Gap 8 mmol/L (4-12); Aspartate Amino Transferase 22 U/L (14-36); Bilirubin,Total 0.4 mg/dL (0.2-1.3); Blood Urea Nitrogen 11 mg/dL (7-17); Carbon Dioxide 28 mmol/L (22-30); Chloride 110 mmol/L (98-107); Estimated CRCL calculation 43 ml/min; Estimated Glomerular Filt Rate > 60; Glucose 93 mg/dL (65-110); Potassium 3.5 mmol/L (3.4-5.0); Sodium 146 mmol/L (137-145)
--- NOTE | 2024-04-06 07:36 | WPDUROPN2 ---
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 Indwelling right ureteral stent since 11/2023. 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 Currently, will manage with maximal urinary drainage with ureteral stent and urethral catheter to prevent reflux. Will plan cysto/right retrograde pyelogram and stent replacement next week. Subjective Subjective Date/Time Seen: 04/06/24 07:36 Interval history: Comfortable, tolerating cathter Review of Systems Review of Systems: ROS unobtainable: Yes unobtainable due to mental status Exam Const: General: no acute distress Resp: Effort & Inspection: normal respiratory effort GI: Inspection: non-distended GI Palp: No abdominal tenderness and No Guarding due to palpation present (GI) Auscultation: normal bowel sounds Objective Data Vital Signs Vital Signs: Vital Signs - 24 hr 04/05/24 08:35 04/05/24 13:51 04/05/24 15:30 Temperature 97.5 F L Pulse Rate 107 H Respiratory Rate 18 Blood Pressure 125/71 Pulse Oximetry 98 98 Oxygen Delivery Nasal Cannula Nasal Cannula Oxygen Flow Rate 2 2 04/05/24 20:00 04/05/24 23:34 04/05/24 20:00 Temperature 98.6 F 98.1 F Pulse Rate 99 91 Respiratory Rate 18 16 Blood Pressure 131/61 133/68 Pulse Oximetry 99 98 98 Oxygen Delivery Oxygen Flow Rate 04/06/24 04:00 Temperature 98.1 F Pulse Rate 94 Respiratory Rate 16 Blood Pressure 127/73 Pulse Oximetry 99 Oxygen Delivery Oxygen Flow Rate Intake/Output Intake/Output: Intake & Output 04/03/24 04/04/24 04/05/24 04/06/24 23:59 23:59 23:59 23:59 Intake Total 2550 420 200 Output Total 150 600 Balance 2550 270 -400 Meds/Results Medications: Active Medications Generic Name Dose Route Start Last Admin Trade Name Freq PRN Reason Stop Dose Admin Acetaminophen 1,000 mg 04/05/24 03:39 Acetaminophen 500 Mg Tablet PO Q6H PRN Mild Pain (1-3) or Fever Al Hydrox/Mg Hydrox/Simethicone 30 ml 04/05/24 03:39 Mag Hydrox/Al Hydrox/Simeth 30 Ml Udc PO Q6H PRN Indigestion Atorvastatin Calcium 40 mg 04/06/24 09:00 Atorvastatin 40 Mg Tablet PO DAILY [facility] Enoxaparin Sodium 40 mg 04/06/24 09:00 Enoxaparin 40 Mg/0.4 Ml Syringe SUB-Q DAILY [facility] Gabapentin 300 mg 04/05/24 17:00 04/05/24 17:13 Gabapentin 300 Mg Capsule PO 300 mg TID NICKY Administration Heparin Sodium (Beef Lung) 50 units 04/05/24 09:00 04/05/24 08:35 Heparin Flush 50 Units/5 Ml Syringe IV PUSH 50 units QAM NICKY Administration Heparin Sodium (Beef Lung) 50 units 04/05/24 07:54 Heparin Flush 50 Units/5 Ml Syringe IV PUSH PRN PRN after intermittent infusion Heparin Sodium (Beef Lung) 50 units 04/05/24 07:54 04/05/24 08:39 Heparin Flush 50 Units/5 Ml Syringe IV PUSH 50 units PRN PRN Administration after blood draws Heparin Sodium (Porcine) 500 units 04/05/24 07:54 Heparin Sodium Lock Flush 500 Units/5 Ml Syringe IV PUSH PRN PRN see comments below Piperacillin Sod/Tazobactam Sod 4.5 gm in 100 mls @ 200 mls/hr 04/05/24 12:00 04/06/24 06:02 Zosyn 4.5 Gm/Ns 100 Ml IVPB 200 mls/hr Q6HR NICKY Administration Vancomycin HCl 1,000 mg in 250 mls @ 250 mls/hr 04/06/24 17:00 Vancomycin 1,000 Mg/Ns 250 Ml IVPB Q24H NICKY Metoprolol Succinate 12.5 mg 04/06/24 09:00 Metoprolol Succinate Ext Rel 12.5 Mg Tabcr
[2024-04-06 07:44] LABS: Anisocytosis 1+; Hypochromasia 1+; Platelet Estimate Adequate (Adequate); Schistocytes None Seen
--- NOTE | 2024-04-06 08:26 | PM.IMPN ---
Progress Note: A&P Assessment and Plan (1) Sepsis: Code(s): A41.9 - Sepsis, unspecified organism Status: Acute Assessment and Plan: Meets SIRS criteria: leukocytosis, lactic acidosis tachycardia, tachypnea, and suspected source of UTI/abdominal abscess/urinoma - lactic acid: 3.4 >> 0.9 on reassessment - sepsis bolus received in the ED - suspected source: UTI vs abdominal abscess vs urinoma - antibiotics: vancomycin and zosyn discontinued on 04/06 as patients UCx negative and Bcx contaminant. 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 - blood cultures drawn on 04/04: staph epidermidis in one culture, likely contaminant - UA: cloudy appearance with 3+ protein, 3+ ketones, 2+ blood, 1+ leukocytes, 11-20 RBC, 51-100 WBC - Urine culture collected on 04/04: negative - CXR: emphysema - Head CT: no acute intracranial findings. 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 - Abdomen/pelvis CT: abscess in the right side of the pelvis posteriorly with emphysematous changes in both sides of the pelvis posteriorly. Right double-J stent slight thickening of the wall of the renal pelvis which may indicate inflammatory changes. Minimal fullness of the left renal pelvis. Left anterior abdominal wall hernia with small bowel content. Adjacent left colostomy is noted. Thickened wall of the gallbladder which may indicate cystitis. 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 In the prone position, the fluid collection is mildly decreased in size from 04/04/2024. (2) Intra-abdominal abscess: Code(s): K65.1 - Peritoneal abscess Status: Acute Assessment and Plan: Patient has history of colon cancer s/p colectomy with colostomy. Patient had a cystoscopy, bilateral retrograde pyelography, right ureteroscopy, right ureteral stent placement, bladder biopsy on 12/07/[address] Higgins. - Abdomen/pelvis CT: 4.8x1.4 cm abscess in the right side of the pelvis posteriorly with emphysematous changes in both sides of the pelvis posteriorly. 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 In the prone position, the fluid collection is mildly decreased in size from 04/04/2024. - Antibiotics: vancomycin and zosyn discontinued on 04/06 as patients UCx negative and Bcx contaminant. 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 - surgery consulted, planned for a drain placement however concern for urinoma and consulted urology - urology consulted Currently, will manage with maximal urinary drainage with ureteral stent and urethral catheter to prevent reflux. Will plan cysto/right retrograde pyelogram and stent replacement next week. (3) Hematuria: Code(s): R31.9 - Hematuria, unspecified Status: Acute Assessment and Plan: Blood noted in patients gee catheter. H/H remains stable. Per RN report they were having to irrigate clots overnight. Called Urology, Dr. Louis and due to patients stent and urinoma concern will hold off on CBI at this time. 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 She was AOx1 on admission. Likely due to ongoing infection. - UA: cloudy appearance with 3+ protein, 3+ ketones, 2+ blood, 1+ leukocytes,
--- NOTE | 2024-04-06 08:43 | PM.PNGS ---
Progress Note: A&P Assessment and Plan (1) Intra-abdominal abscess: Code(s): K65.1 - Peritoneal abscess Status: Acute Assessment and Plan: likely urinoma, appreciate urology input, plan for gee decompression, abx for now, exam benign, urology planning for cysto, pyelogram next wk Subjective Subjective Date/Time Seen: 04/06/24 08:43 Interval history: no acute issues overnight, still lethargic, confused (likely baseline) Review of Systems Review of Systems: ROS unobtainable: Yes unobtainable due to mental status Exam Const: General: comfortable and no acute distress Resp: Auscultation: diminished lung sounds Cardio: Rate: regular rate Rhythm: regular rhythm GI: Inspection: normal to inspection and distended GI Palp: No abdominal tenderness, Yes Soft to palpation, No Tenderness to palpation present (GI), No Guarding due to palpation present (GI) and No Rigid due to palpation Objective Data Vital Signs Vital Signs: Vital Signs - 24 hr 04/05/24 13:51 04/05/24 15:30 04/05/24 20:00 Temperature 36.4 C L 37.0 C Pulse Rate 107 H 99 Respiratory Rate 18 18 Blood Pressure 125/71 131/61 Pulse Oximetry 98 99 Oxygen Delivery Nasal Cannula Oxygen Flow Rate 2 Fraction of Inspired Oxygen 04/05/24 23:34 04/05/24 20:00 04/06/24 04:00 Temperature 36.7 C 36.7 C Pulse Rate 91 94 Respiratory Rate 16 16 Blood Pressure 133/68 127/73 Pulse Oximetry 98 98 99 Oxygen Delivery Oxygen Flow Rate Fraction of Inspired Oxygen 04/06/24 08:11 Temperature Pulse Rate Respiratory Rate Blood Pressure Pulse Oximetry 98 Oxygen Delivery Nasal Cannula Oxygen Flow Rate 2 Fraction of Inspired Oxygen 28 Intake/Output Intake/Output: Intake & Output 04/03/24 04/04/24 04/05/24 04/06/24 23:59 23:59 23:59 23:59 Intake Total 2550 420 200 Output Total 150 600 Balance 2550 270 -400 Meds/Results Medications: Active Medications Generic Name Dose Route Start Last Admin Trade Name Freq PRN Reason Stop Dose Admin Acetaminophen 1,000 mg 04/05/24 03:39 Acetaminophen 500 Mg Tablet PO Q6H PRN Mild Pain (1-3) or Fever Al Hydrox/Mg Hydrox/Simethicone 30 ml 04/05/24 03:39 Mag Hydrox/Al Hydrox/Simeth 30 Ml Udc PO Q6H PRN Indigestion Atorvastatin Calcium 40 mg 04/06/24 09:00 Atorvastatin 40 Mg Tablet PO DAILY [facility] Enoxaparin Sodium 40 mg 04/06/24 09:00 Enoxaparin 40 Mg/0.4 Ml Syringe SUB-Q DAILY [facility] Gabapentin 300 mg 04/05/24 17:00 04/05/24 17:13 Gabapentin 300 Mg Capsule PO 300 mg TID NICKY Administration Heparin Sodium (Beef Lung) 50 units 04/05/24 09:00 04/05/24 08:35 Heparin Flush 50 Units/5 Ml Syringe IV PUSH 50 units QAM NICKY Administration Heparin Sodium (Beef Lung) 50 units 04/05/24 07:54 Heparin Flush 50 Units/5 Ml Syringe IV PUSH PRN PRN after intermittent infusion Heparin Sodium (Beef Lung) 50 units 04/05/24 07:54 04/05/24 08:39 Heparin Flush 50 Units/5 Ml Syringe IV PUSH 50 units PRN PRN Administration after blood draws Heparin Sodium (Porcine) 500 units 04/05/24 07:54 Heparin Sodium Lock Flush 500 Units/5 Ml Syringe IV PUSH PRN PRN see comments below Piperacillin Sod/Tazobactam Sod 4.5 gm in 100 mls @ 200 mls/hr 04/05/24 12:00 04/06/24 06:02 Zosyn 4.5 Gm/Ns 100 Ml IVPB 200 mls/hr Q6HR NICKY Administration Vancomycin HCl 1,000 mg in 250 mls @ 250 mls/hr 04/06/24 17:00 Vancomycin 1,000 Mg/Ns 250 Ml IVPB Q24H [facility] Metoprolol Succinate 12.5 mg 04/06/24 09:00 Metoprolol Succinate Ext Rel 12.5 Mg Tabcr PO DAILY [facility] Nortriptyline HCl 25 mg 04/05/24 21:00 04/05/24 21:20 Nortriptyline Hcl 25 Mg Capsule PO 25 mg HS [facility] Administration Ondansetron HCl 4 mg 04/05/24 03:39 Ondansetron Inj 4 Mg/2 Ml Vial IV PUSH Q6H PRN Nausea And Vomiting Polyethylene Glycol 17 gm 04/05/24 03:39 Polyet
[2024-04-06] MEDS: METOPROLOL SUCCINATE EXT REL 12.5 MG TABCR PO (08:59)
[2024-04-06] MEDS: GABAPENTIN 300 MG CAPSULE PO ×3 (08:59→17:49)
[2024-04-06] MEDS: TOPIRAMATE 25 MG TABLET 50 MG PO (09:00)
[2024-04-06] MEDS: ATORVASTATIN 40 MG TABLET PO (09:00)
[2024-04-06] MEDS: ENOXAPARIN 40 MG/0.4 ML SYRINGE SUB-Q (09:00)
[2024-04-06] MEDS: cefTRIAXone 2 GM/NS 100 ML 2 GM/100 ML BAG IVPB (17:48)
[2024-04-06] MEDS: NORTRIPTYLINE HCL 25 MG CAPSULE PO (21:11)
[2024-04-07] VITALS (8 sets, daily range): BP systolic 98–140; BP diastolic 56–75; PULSE 78–91; RESP 18–24; TEMP 36.4–36.9; O2SAT 97–100
[2024-04-07] MEDS: oxyCODONE/ACETAMINOPHEN (*CRX) 5-325 MG TABLET 1 TABLET PO ×3 (00:21→17:07)
[2024-04-07] MEDS: CENTRAL LINE FLUSH 10 ML IV PUSH ×4 (00:21→23:34)
[2024-04-07 06:10] LABS: Basophils Absolute Auto 0.1 K/mm3 (0.0-0.1); Basophils Percent Auto 0.8 % (0.2-1.2); Eosinophils Absolute Auto 0.5 K/mm3 (0-0.3); Eosinophils Percent Auto 6.3 % (0-4.4); Hematocrit 26.8 % (37.0-47.0); Hemoglobin 8.1 g/dL (12.0-15.0); Immature Granulocyte Absolute 0.03 K/mm3 (0.00-0.031); Immature Granulocyte Percent A 0.4 % (0-0.5); Lymphocytes Absolute Auto 2.15 K/mm3 (0.9-3.2); Lymphocytes Percent Auto 30.2 % (18.3-44.2); Mean Corpuscular HGB Conc 30.2 g/dl (32-36); Mean Corpuscular Hemoglobin 24.9 pg (26-34); Mean Corpuscular Volume 82.5 fl (80-100); Monocytes Absolute Auto 0.6 K/mm3 (0.1-0.6); Neutrophils Absolute Auto 3.9 K/mm3 (1.3-6.7); Neutrophils Percent Auto 54.3 % (45.5-73.1); Platelet Count Result 222 k/mm3 (150-375); Red Blood Count 3.25 M/mm3 (4.2-5.4); Red Cell Distribution Width 15.7 % (11.5-14.5); White Blood Count 7.1 K/mm3 (4.5-10.0)
[2024-04-07 06:19] LABS: Alanine Aminotransferase 9 U/L (6-35); Alkaline Phosphatase 76 U/L (38-126); Anion Gap 6 mmol/L (4-12); Aspartate Amino Transferase 19 U/L (14-36); Bilirubin,Total 0.1 mg/dL (0.2-1.3); Blood Urea Nitrogen 13 mg/dL (7-17); Calcium 7.4 mg/dL (8.4-10.2); Carbon Dioxide 32 mmol/L (22-30); Chloride 101 mmol/L (98-107); Estimated CRCL calculation 43 ml/min; Estimated Glomerular Filt Rate > 60; Glucose 104 mg/dL (65-110); Potassium 3.1 mmol/L (3.4-5.0); Sodium 139 mmol/L (137-145)
--- NOTE | 2024-04-07 07:57 | PM.IMPN ---
Progress Note: A&P Assessment and Plan (1) Sepsis: Code(s): A41.9 - Sepsis, unspecified organism Status: Acute Assessment and Plan: Meets SIRS criteria: leukocytosis, lactic acidosis tachycardia, tachypnea, and suspected source of UTI/abdominal abscess/urinoma - lactic acid: 3.4 >> 0.9 on reassessment - sepsis bolus received in the ED - suspected source: UTI vs abdominal abscess vs urinoma - antibiotics: vancomycin and zosyn discontinued on 04/06 as patients UCx negative and Bcx contaminant. 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 - blood cultures drawn on 04/04: staph epidermidis in one culture, likely contaminant - UA: cloudy appearance with 3+ protein, 3+ ketones, 2+ blood, 1+ leukocytes, 11-20 RBC, 51-100 WBC - Urine culture collected on 04/04: negative - CXR: emphysema - Head CT: no acute intracranial findings. 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 - Abdomen/pelvis CT: abscess in the right side of the pelvis posteriorly with emphysematous changes in both sides of the pelvis posteriorly. Right double-J stent slight thickening of the wall of the renal pelvis which may indicate inflammatory changes. Minimal fullness of the left renal pelvis. Left anterior abdominal wall hernia with small bowel content. Adjacent left colostomy is noted. Thickened wall of the gallbladder which may indicate cystitis. 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 In the prone position, the fluid collection is mildly decreased in size from 04/04/2024. (2) Intra-abdominal abscess: Code(s): K65.1 - Peritoneal abscess Status: Acute Assessment and Plan: Patient has history of colon cancer s/p colectomy with colostomy. Patient had a cystoscopy, bilateral retrograde pyelography, right ureteroscopy, right ureteral stent placement, bladder biopsy on 12/07/[address] Higgins. - Abdomen/pelvis CT: 4.8x1.4 cm abscess in the right side of the pelvis posteriorly with emphysematous changes in both sides of the pelvis posteriorly. 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 In the prone position, the fluid collection is mildly decreased in size from 04/04/2024. - Antibiotics: vancomycin and zosyn discontinued on 04/06 as patients UCx negative and Bcx contaminant. 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 - surgery consulted, planned for a drain placement however concern for urinoma and consulted urology - urology consulted Currently, will manage with maximal urinary drainage with ureteral stent and urethral catheter to prevent reflux. Will plan cysto/right retrograde pyelogram and stent replacement next week. (3) Hematuria: Code(s): R31.9 - Hematuria, unspecified Status: Acute Assessment and Plan: Blood noted in patients gee catheter. H/H remains stable. Per RN report they were having to irrigate clots overnight. Called Urology, Dr. Louis and due to patients stent and urinoma concern will hold off on CBI at this time. - Intermittent bladder irrigation once per shift of 50 cc saline flush until no clots are clogging the catheter - Monitor H/H, transfuse if Hgb < 7 - Urology consulted Likely inflammatory response 04/07: Hematuria improving on assessment. Continue to monitor. 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 S
--- NOTE | 2024-04-07 08:21 | PM.PNGS ---
Progress Note: A&P Assessment and Plan (1) Intra-abdominal abscess: Code(s): K65.1 - Peritoneal abscess Status: Acute Assessment and Plan: likely urinoma, management per urology, continue Yuen decompression, no acute surgical issues, will sign off, call with questions or issues Subjective Subjective Date/Time Seen: 04/07/24 08:21 Interval history: feels much better today, mental status markedly improved, no pain, wants to go home Review of Systems Review of Systems: All systems reviewed & are unremarkable except as noted in HPI and below Exam Const: General: cooperative, comfortable and no acute distress Resp: Auscultation: clear to auscultation bilaterally Cardio: Rate: regular rate Rhythm: regular rhythm GI: Inspection: normal to inspection and non-distended GI Palp: No abdominal tenderness and Yes Soft to palpation Objective Data Vital Signs Vital Signs: Vital Signs - 24 hr 04/06/24 08:59 04/06/24 08:55 04/06/24 11:01 Temperature Pulse Rate 88 Respiratory Rate Blood Pressure Pulse Oximetry 98 Oxygen Delivery Nasal Cannula Nasal Cannula Oxygen Flow Rate 2 2 04/06/24 12:00 04/06/24 16:00 04/06/24 20:00 Temperature 36.6 C 36.8 C 36.5 C Pulse Rate 107 H 107 H 97 Respiratory Rate 20 20 20 Blood Pressure 119/51 L 95/60 L 107/62 Pulse Oximetry 100 100 100 Oxygen Delivery Oxygen Flow Rate 04/06/24 20:00 04/06/24 23:34 04/07/24 04:00 Temperature 36.5 C 36.9 C Pulse Rate 96 88 Respiratory Rate 18 18 Blood Pressure 117/54 L 115/73 Pulse Oximetry 99 100 99 Oxygen Delivery Nasal Cannula Oxygen Flow Rate 2 Intake/Output Intake/Output: Intake & Output 04/04/24 04/05/24 04/06/24 04/07/24 23:59 23:59 23:59 23:59 Intake Total 2550 420 1430 300 Output Total 150 1550 450 Balance 2550 270 -120 -150 Meds/Results Medications: Active Medications Generic Name Dose Route Start Last Admin Trade Name Freq PRN Reason Stop Dose Admin Acetaminophen 1,000 mg 04/05/24 03:39 Acetaminophen 500 Mg Tablet PO Q6H PRN Mild Pain (1-3) or Fever Al Hydrox/Mg Hydrox/Simethicone 30 ml 04/05/24 03:39 Mag Hydrox/Al Hydrox/Simeth 30 Ml Udc PO Q6H PRN Indigestion Atorvastatin Calcium 40 mg 04/06/24 09:00 04/06/24 09:00 Atorvastatin 40 Mg Tablet PO 40 mg DAILY NICKY Administration Gabapentin 300 mg 04/05/24 17:00 04/06/24 17:49 Gabapentin 300 Mg Capsule PO 300 mg TID NICKY Administration Heparin Sodium (Beef Lung) 50 units 04/05/24 09:00 04/06/24 09:00 Heparin Flush 50 Units/5 Ml Syringe IV PUSH 50 units QAM NICKY Administration Heparin Sodium (Beef Lung) 50 units 04/05/24 07:54 Heparin Flush 50 Units/5 Ml Syringe IV PUSH PRN PRN after intermittent infusion Heparin Sodium (Beef Lung) 50 units 04/05/24 07:54 04/05/24 08:39 Heparin Flush 50 Units/5 Ml Syringe IV PUSH 50 units PRN PRN Administration after blood draws Heparin Sodium (Porcine) 500 units 04/05/24 07:54 Heparin Sodium Lock Flush 500 Units/5 Ml Syringe IV PUSH PRN PRN see comments below Ceftriaxone Sodium 2 gm in 100 mls @ 200 mls/hr 04/06/24 18:00 04/06/24 18:18 Rocephin 2 Gm/Ns 100 Ml IVPB Infused Q24H [facility] Infusion Metoprolol Succinate 12.5 mg 04/06/24 09:00 04/06/24 08:59 Metoprolol Succinate Ext Rel 12.5 Mg Tabcr PO 12.5 mg DAILY NICKY Administration Nortriptyline HCl 25 mg 04/05/24 21:00 04/06/24 21:11 Nortriptyline Hcl 25 Mg Capsule PO 25 mg HS NICKY Administration Ondansetron HCl 4 mg 04/05/24 03:39 Ondansetron Inj 4 Mg/2 Ml Vial IV PUSH Q6H PRN Nausea And Vomiting Oxycodone/Acetaminophen 1 tablet 04/07/24 06:14 Oxycodone/Acetaminophen (*Crx) 5-325 Mg Tablet PO TID PRN Pain Rated 4-10 Polyethylene Glycol 17 gm 04/05/24 03:39 Polyethylene Glycol 3350 17 Gm Powd.Pack PO QAM PRN Constipation Sodium C
[2024-04-07] MEDS: POTASSIUM CHLORIDE 20 MEQ ER TABLET 40 MEQ PO (08:59)
[2024-04-07] MEDS: ATORVASTATIN 40 MG TABLET PO (08:59)
[2024-04-07] MEDS: GABAPENTIN 300 MG CAPSULE PO ×3 (09:00→17:07)
[2024-04-07] MEDS: TOPIRAMATE 25 MG TABLET 50 MG PO (09:00)
[2024-04-07] MEDS: METOPROLOL SUCCINATE EXT REL 12.5 MG TABCR PO (09:00)
--- NOTE | 2024-04-07 09:08 | WPDUROPN2 ---
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 Indwelling right ureteral stent since 11/2023. 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 Currently, will manage with maximal urinary drainage with ureteral stent and urethral catheter to prevent reflux. Will plan cysto/right retrograde pyelogram and stent replacement next week. having some hematuria after Yuen was placed, suspect may be inflammatory, possibly exacerbated by infection with foreign body stent and Yuen in bladder. Would intermittently irrigate Yuen catheter if it appears it is no longer draining, or patient is complaining of bladder distention. We do this by disconnecting drainage bag from Yuen and flushing with a catheter tip syringe 60 mL of sterile saline an aspirate. If clot returned repeated until urine appears clear. Subjective Subjective Date/Time Seen: 04/07/24 09:08 Interval history: sitting up in chair today, conversant, Yuen catheter is draining red urine without clots Exam Narrative: General: Thin, frail, confused, not oriented or able to answer questions HEENT: Normocephalic, atraumatic, sclerae anicteric Respiratory: Normal respiratory effort, no accessory muscle use Abdomen: Nondistended, soft, nontender : Yuen in place, with red urine, no clots Skin: Normal coloration, warm and dry Neurologic: Confused Const: General: no acute distress Resp: Effort & Inspection: normal respiratory effort GI: Inspection: non-distended Auscultation: normal bowel sounds Urinary Catheter: Urinary Catheter: patent and draining and urine red Objective Data Vital Signs Vital Signs: Vital Signs - 24 hr 04/06/24 11:01 04/06/24 12:00 04/06/24 16:00 Temperature 36.6 C 36.8 C Pulse Rate 107 H 107 H Respiratory Rate 20 20 Blood Pressure 119/51 L 95/60 L Pulse Oximetry 100 100 Oxygen Delivery Nasal Cannula Oxygen Flow Rate 2 04/06/24 20:00 04/06/24 20:00 04/06/24 23:34 Temperature 36.5 C 36.5 C Pulse Rate 97 96 Respiratory Rate 20 18 Blood Pressure 107/62 117/54 L Pulse Oximetry 100 99 100 Oxygen Delivery Nasal Cannula Oxygen Flow Rate 2 04/07/24 04:00 04/07/24 09:00 Temperature 36.9 C Pulse Rate 88 86 Respiratory Rate 18 Blood Pressure 115/73 Pulse Oximetry 99 Oxygen Delivery Oxygen Flow Rate Intake/Output Intake/Output: Intake & Output 04/04/24 04/05/24 04/06/24 04/07/24 23:59 23:59 23:59 23:59 Intake Total 2550 420 1430 300 Output Total 150 1550 450 Balance 2550 270 -120 -150 Meds/Results Medications: Active Medications Generic Name Dose Route Start Last Admin Trade Name Freq PRN Reason Stop Dose Admin Acetaminophen 1,000 mg 04/05/24 03:39 Acetaminophen 500 Mg Tablet PO Q6H PRN Mild Pain (1-3) or Fever Al Hydrox/Mg Hydrox/Simethicone 30 ml 04/05/24 03:39 Mag Hydrox/Al Hydrox/Simeth 30 Ml Udc PO Q6H PRN Indigestion Atorvastatin Calcium 40 mg 04/06/24 09:00 04/07/24 08:59 Atorvastatin 40 Mg Tablet PO 40 mg DAILY NICKY Administration Gabapentin 300 mg 04/05/24 17:00 04/07/24 09:00 Gabapentin 300 Mg Capsule PO 300 mg TID NICKY Administration Heparin Sodium (Beef Lung) 50 units 04/05/24 09:00 04/07/24 09:00 Heparin Flush 50 Units/5 Ml Syringe IV PUSH 50 units QAM NICKY Administration Heparin Sodium (Beef Lung) 50 units 04/05/24 07:54 Heparin Flush 5
[2024-04-07 12:09] LABS: Iron 62 ug/dL (37-170)
[2024-04-07 12:19] LABS: Percent Iron Saturation 35 % (20-50)
[2024-04-07 12:41] LABS: Folic Acid 3.3 ng/mL (2.76->20)
[2024-04-07] MEDS: cefTRIAXone 2 GM/NS 100 ML 2 GM/100 ML BAG IVPB (17:07)
[2024-04-07] MEDS: NORTRIPTYLINE HCL 25 MG CAPSULE PO (20:24)
[2024-04-07] MEDS: MAG HYDROX/AL HYDROX/SIMETH 30 ML UDC PO (20:27)
[2024-04-08] MEDS: oxyCODONE/ACETAMINOPHEN (*CRX) 5-325 MG TABLET 1 TABLET PO ×3 (03:39→20:12)
[2024-04-08 04:55] VITALS: BP 116/59; PULSE 78; RESP 20; TEMP 36.4; O2SAT 96
[2024-04-08 05:46] LABS: Basophils Absolute Auto 0.1 K/mm3 (0.0-0.1); Basophils Percent Auto 0.7 % (0.2-1.2); Eosinophils Absolute Auto 0.5 K/mm3 (0-0.3); Hematocrit 27.6 % (37.0-47.0); Hemoglobin 8.2 g/dL (12.0-15.0); Immature Granulocyte Absolute 0.04 K/mm3 (0.00-0.031); Immature Granulocyte Percent A 0.5 % (0-0.5); Lymphocytes Percent Auto 26.2 % (18.3-44.2); Mean Corpuscular HGB Conc 29.7 g/dl (32-36); Mean Corpuscular Hemoglobin 24.6 pg (26-34); Mean Corpuscular Volume 82.9 fl (80-100); Monocytes Absolute Auto 0.5 K/mm3 (0.1-0.6); Monocytes Percent Auto 6.7 % (2.6-8.5); Neutrophils Absolute Auto 4.6 K/mm3 (1.3-6.7); Neutrophils Percent Auto 59.9 % (45.5-73.1); Platelet Count Result 223 k/mm3 (150-375); Red Blood Count 3.33 M/mm3 (4.2-5.4); Red Cell Distribution Width 15.6 % (11.5-14.5); White Blood Count 7.6 K/mm3 (4.5-10.0)
[2024-04-08 05:58] LABS: Alanine Aminotransferase 10 U/L (6-35); Albumin Level 2.9 g/dL (3.5-5.1); Alkaline Phosphatase 73 U/L (38-126); Anion Gap 4 mmol/L (4-12); Aspartate Amino Transferase 25 U/L (14-36); Bilirubin,Total < 0.1 mg/dL (0.2-1.3); Blood Urea Nitrogen 12 mg/dL (7-17); Calcium 7.3 mg/dL (8.4-10.2); Carbon Dioxide 31 mmol/L (22-30); Chloride 104 mmol/L (98-107); Estimated CRCL calculation 49 ml/min; Estimated Glomerular Filt Rate > 60; Glucose 95 mg/dL (65-110); Sodium 139 mmol/L (137-145)
[2024-04-08 06:16] LABS: Anisocytosis 1+; Hypochromasia 1+; Platelet Estimate Adequate (Adequate); Schistocytes None Seen
[2024-04-08] MEDS: CENTRAL LINE FLUSH 10 ML IV PUSH ×3 (07:08→20:12)
--- NOTE | 2024-04-08 09:14 | WPDUROPN2 ---
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 Indwelling right ureteral stent since 11/2023. Chronic small right pelvic fluid collection -> recent imaging suggests possible ureteral-pelvic fistula with urinoma. Currently, will manage with maximal urinary drainage with ureteral stent and urethral catheter to prevent reflux. Will plan cysto/right retrograde pyelogram and stent replacement sometime this week dependent on hospital course Having some hematuria after Yuen was placed, suspect may be inflammatory, possibly exacerbated by infection with foreign body stent and Yuen in bladder. Intermittently irrigate Yuen catheter as needed. Draining well at this time Subjective Subjective Date/Time Seen: 04/08/24 09:14 Interval history: Anny is doing well this time. She is eager for discharge home. Offers no complaints. Tolerating Yuen catheter without difficulty. Has noticed some hematuria a reports no issues with drainage and denies concerns of bladder distension. Denies nausea, vomiting, fever, chills. Tolerating diet. Review of Systems Review of Systems: All systems reviewed & are unremarkable except as noted in HPI and below Exam Narrative: General: Awake, alert, comfortable, no acute distress HEENT: Normocephalic, atraumatic, sclerae anicteric Respiratory: Normal respiratory effort, no accessory muscle use Abdomen: Nondistended, soft, nontender : Yuen catheter draining light pink urine with few tiny clots Skin: Normal coloration, warm and dry Neurologic: No focal neuro deficits noted Psychiatric: Appropriate mood and affect, judgment and insight intact Objective Data Vital Signs Vital Signs: Vital Signs - 24 hr 04/07/24 12:00 04/07/24 15:55 04/07/24 20:00 Temperature 97.7 F 98.2 F Pulse Rate 78 83 Respiratory Rate 20 24 H Blood Pressure 98/59 L 111/62 Pulse Oximetry 100 99 99 Oxygen Delivery Nasal Cannula Oxygen Flow Rate 2 08/11/24 21:35 04/08/24 04:55 Temperature 98.3 F 97.6 F Pulse Rate 86 78 Respiratory Rate 20 20 Blood Pressure 140/75 116/59 L Pulse Oximetry 97 96 Oxygen Delivery Oxygen Flow Rate Intake/Output Intake/Output: Intake & Output 04/05/24 04/06/24 04/07/24 04/08/24 23:59 23:59 23:59 23:59 Intake Total 420 1430 740 322 Output Total 150 1550 1180 550 Balance 160 -141 -080 -873 Meds/Results Medications: Active Medications Generic Name Dose Route Start Last Admin Trade Name Freq PRN Reason Stop Dose Admin Acetaminophen 1,000 mg 04/05/24 03:39 Acetaminophen 500 Mg Tablet PO Q6H PRN Mild Pain (1-3) or Fever Al Hydrox/Mg Hydrox/Simethicone 30 ml 04/05/24 03:39 04/07/24 20:27 Mag Hydrox/Al Hydrox/Simeth 30 Ml Udc PO 30 ml Q6H PRN Administration Indigestion Atorvastatin Calcium 40 mg 04/06/24 09:00 04/07/24 08:59 Atorvastatin 40 Mg Tablet PO 40 mg DAILY N[facility] Administration Gabapentin 300 mg 04/05/24 17:00 04/07/24 17:07 Gabapentin 300 Mg Capsule PO 300 mg TID NICKY Administration Heparin Sodium (Beef Lung) 50 units 04/05/24 09:00 04/07/24 09:00 Heparin Flush 50 Units/5 Ml Syringe IV PUSH 50 units QAM NICKY Administration Heparin Sodium (Beef Lung) 50 units 04/05/24 07:54 Heparin Flush 50 Units/5 Ml Syringe IV PUSH PRN PRN after intermittent infusion Heparin Sodium (Beef Lung) 50 units 04/05/24 07:54 04/05/24 08:39 Heparin Flush 50 Units/5 Ml Syringe IV PUSH 50 units
[2024-04-08 09:23] VITALS: PULSE 74
[2024-04-08] MEDS: ATORVASTATIN 40 MG TABLET PO (09:23)
[2024-04-08] MEDS: METOPROLOL SUCCINATE EXT REL 12.5 MG TABCR PO (09:23)
[2024-04-08 09:25] VITALS: O2SAT 97
[2024-04-08] MEDS: GABAPENTIN 300 MG CAPSULE PO ×3 (09:25→16:20)
[2024-04-08] MEDS: TOPIRAMATE 25 MG TABLET 50 MG PO (09:25)
[2024-04-08 09:30] VITALS: O2SAT 97
--- NOTE | 2024-04-08 12:18 | PM.IMPN ---
Progress Note: A&P Assessment and Plan (1) Sepsis: Code(s): A41.9 - Sepsis, unspecified organism Status: Acute Assessment and Plan: Meets SIRS criteria: leukocytosis, lactic acidosis tachycardia, tachypnea, and suspected source of UTI/abdominal abscess/urinoma - lactic acid: 3.4 >> 0.9 on reassessment - sepsis bolus received in the ED - suspected source: UTI vs abdominal abscess vs urinoma - antibiotics: vancomycin and zosyn discontinued on 04/06 as patients UCx negative and Bcx contaminant. Started on rocephin for broad coverage of urinoma dc 04/08, remains on augmentin to complete antibiotic course (end date 04/11) - blood cultures drawn on 04/04: staph epidermidis in one culture, likely contaminant - UA: cloudy appearance with 3+ protein, 3+ ketones, 2+ blood, 1+ leukocytes, 11-20 RBC, 51-100 WBC - Urine culture collected on 04/04: negative - CXR: emphysema - Head CT: no acute intracranial findings. 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 - Abdomen/pelvis CT: abscess in the right side of the pelvis posteriorly with emphysematous changes in both sides of the pelvis posteriorly. Right double-J stent slight thickening of the wall of the renal pelvis which may indicate inflammatory changes. Minimal fullness of the left renal pelvis. Left anterior abdominal wall hernia with small bowel content. Adjacent left colostomy is noted. Thickened wall of the gallbladder which may indicate cystitis. 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 In the prone position, the fluid collection is mildly decreased in size from 04/04/2024. Resolved. (2) Urinoma: Status: Acute Assessment and Plan: Patient has history of colon cancer s/p colectomy with colostomy. Patient had a cystoscopy, bilateral retrograde pyelography, right ureteroscopy, right ureteral stent placement, bladder biopsy on 12/07/[address] Higgins. - Abdomen/pelvis CT: 4.8x1.4 cm abscess in the right side of the pelvis posteriorly with emphysematous changes in both sides of the pelvis posteriorly. 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 In the prone position, the fluid collection is mildly decreased in size from 04/04/2024. - Antibiotics: vancomycin and zosyn discontinued on 04/06 as patients UCx negative and Bcx contaminant. Started on rocephin for broad coverage of urinoma dc 04/08, started on augmentin to complete course (end date 04/11) - surgery consulted, planned for a drain placement however concern for urinoma and consulted urology - urology consulted Currently, will manage with maximal urinary drainage with ureteral stent and urethral catheter to prevent reflux. Will plan cysto/right retrograde pyelogram and stent replacement sometime this week during admission (3) Hematuria: Code(s): R31.9 - Hematuria, unspecified Status: Acute Assessment and Plan: Blood noted in patients gee catheter. H/H remains stable. Per RN report they were having to irrigate clots overnight. Called Urology, Dr. Louis and due to patients stent and urinoma concern will hold off on CBI at this time. - Intermittent bladder irrigation once per shift of 50 cc saline flush until no clots are clogging the catheter - Monitor H/H, transfuse if Hgb < 7 - Urology consulted Likely inflammatory response, possibly exacerbated by infection with foreign body stent and Gee in bladder Continue to monitor (4) Urinary tract infection: Code(s): N39.0 - Urinary tract infection, site not specified Status: Acute Assessment and Plan: - UA: cloudy appearance with 3+ protein, 3+ ketones, 2+ blood, 1+ leukocytes, 11-20 RBC, 51-100 WBC - Urine culture collected on 04/04: negative - No previous micro to be reviewed - started on meropenem 04/05, transitioned to zosyn dc 04/06, transitioned to rocephin for urinoma dc 04/08,
[2024-04-08] MEDS: AMOXICILLIN/CLAVULANATE K 875-125 MG TAB 1 TABLET PO ×2 (12:19→20:11)
[2024-04-08 16:00] VITALS: BP 108/51; PULSE 96; RESP 18; TEMP 36.5; O2SAT 98
[2024-04-08] MEDS: NORTRIPTYLINE HCL 25 MG CAPSULE PO (20:11)
[2024-04-08 21:30] VITALS: BP 118/54; PULSE 110; RESP 20; TEMP 35.7; O2SAT 96
[2024-04-08] MEDS: MAG HYDROX/AL HYDROX/SIMETH 30 ML UDC PO (22:36)
[2024-04-09] VITALS (16 sets, daily range): BP systolic 93–130; BP diastolic 56–81; PULSE 56–107; RESP 12–20; TEMP 35.5–36.6; O2SAT 93–100
[2024-04-09] MEDS: oxyCODONE/ACETAMINOPHEN (*CRX) 5-325 MG TABLET 1 TABLET PO ×3 (04:27→23:03)
[2024-04-09] MEDS: CENTRAL LINE FLUSH 10 ML IV PUSH ×3 (05:31→20:25)
[2024-04-09 05:39] LABS: Basophils Absolute Auto 0.1 K/mm3 (0.0-0.1); Basophils Percent Auto 0.7 % (0.2-1.2); Eosinophils Absolute Auto 0.5 K/mm3 (0-0.3); Eosinophils Percent Auto 6.2 % (0-4.4); Hematocrit 27.1 % (37.0-47.0); Hemoglobin 8.1 g/dL (12.0-15.0); Immature Granulocyte Absolute 0.03 K/mm3 (0.00-0.031); Immature Granulocyte Percent A 0.4 % (0-0.5); Lymphocytes Absolute Auto 1.87 K/mm3 (0.9-3.2); Lymphocytes Percent Auto 23.1 % (18.3-44.2); Mean Corpuscular HGB Conc 29.9 g/dl (32-36); Mean Corpuscular Hemoglobin 24.8 pg (26-34); Mean Corpuscular Volume 82.9 fl (80-100); Mean Platelet Volume 9.9 fl (7.4-10.4); Monocytes Absolute Auto 0.4 K/mm3 (0.1-0.6); Monocytes Percent Auto 4.6 % (2.6-8.5); Neutrophils Absolute Auto 5.3 K/mm3 (1.3-6.7); Platelet Count Result 184 k/mm3 (150-375); Red Blood Count 3.27 M/mm3 (4.2-5.4); Red Cell Distribution Width 15.3 % (11.5-14.5); White Blood Count 8.1 K/mm3 (4.5-10.0)
[2024-04-09 05:50] LABS: Alanine Aminotransferase 11 U/L (6-35); Albumin Level 2.9 g/dL (3.5-5.1); Alkaline Phosphatase 75 U/L (38-126); Anion Gap 7 mmol/L (4-12); Aspartate Amino Transferase 24 U/L (14-36); Bilirubin,Total 0.2 mg/dL (0.2-1.3); Blood Urea Nitrogen 14 mg/dL (7-17); Calcium 7.2 mg/dL (8.4-10.2); Carbon Dioxide 28 mmol/L (22-30); Chloride 102 mmol/L (98-107); Estimated CRCL calculation 49 ml/min; Estimated Glomerular Filt Rate > 60; Glucose 163 mg/dL (65-110); Potassium 3.6 mmol/L (3.4-5.0); Sodium 137 mmol/L (137-145)
[2024-04-09 05:58] LABS: Hypochromasia 2+; Ovalocytes 1+; Platelet Estimate Adequate (Adequate); Schistocytes None Seen; Stomatocytes 1+
--- NOTE | 2024-04-09 07:49 | PM.IMPN ---
Progress Note: A&P Assessment and Plan (1) Sepsis: Code(s): A41.9 - Sepsis, unspecified organism Status: Acute Assessment and Plan: Meets SIRS criteria: leukocytosis, lactic acidosis tachycardia, tachypnea, and suspected source of UTI/abdominal abscess/urinoma - lactic acid: 3.4 >> 0.9 on reassessment - sepsis bolus received in the ED - suspected source: UTI vs abdominal abscess vs urinoma - antibiotics: vancomycin and zosyn discontinued on 04/06 as patients UCx negative and Bcx contaminant. Started on rocephin for broad coverage of urinoma dc 04/08, remains on augmentin to complete antibiotic course (end date 04/11) - blood cultures drawn on 04/04: staph epidermidis in one culture, likely contaminant - UA: cloudy appearance with 3+ protein, 3+ ketones, 2+ blood, 1+ leukocytes, 11-20 RBC, 51-100 WBC - Urine culture collected on 04/04: negative - CXR: emphysema - Head CT: no acute intracranial findings. 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 - Abdomen/pelvis CT: abscess in the right side of the pelvis posteriorly with emphysematous changes in both sides of the pelvis posteriorly. Right double-J stent slight thickening of the wall of the renal pelvis which may indicate inflammatory changes. Minimal fullness of the left renal pelvis. Left anterior abdominal wall hernia with small bowel content. Adjacent left colostomy is noted. Thickened wall of the gallbladder which may indicate cystitis. 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 In the prone position, the fluid collection is mildly decreased in size from 04/04/2024. Resolved. Patient to complete antibiotic course on 04/11. (2) Altered mental status: Code(s): R41.82 - Altered mental status, unspecified Status: Acute Assessment and Plan: Patient is baseline AOx4. She was AOx1 on admission. Likely due to ongoing infection. - UA: cloudy appearance with 3+ protein, 3+ ketones, 2+ blood, 1+ leukocytes, 11-20 RBC, 51-100 WBC - Urine culture collected on 04/04: negative - CXR: emphysema - Head CT: no acute intracranial findings. 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 - Abdomen/pelvis CT: abscess in the right side of the pelvis posteriorly with emphysematous changes in both sides of the pelvis posteriorly. Right double-J stent slight thickening of the wall of the renal pelvis which may indicate inflammatory changes. Minimal fullness of the left renal pelvis. Left anterior abdominal wall hernia with small bowel content. Adjacent left colostomy is noted. Thickened wall of the gallbladder which may indicate cystitis. 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 In the prone position, the fluid collection is mildly decreased in size from 04/04/2024 - Covid/flu/RSV ordered - EtOH negative Resolved. 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 Patient had a cystoscopy, bilateral retrograde pyelography, right ureteroscopy, right ureteral stent placement, bladder biopsy on 12/07/[address] Higgins. - Abdomen/pelvis CT: 4.8x1.4 cm abscess in the right side of the pelvis posteriorly with emphysematous changes in both sides of the pelvis posteriorly. 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 In the prone position, the fluid collection is mildly decreased in size from 04/04/2024. - Antibiotics: vancomycin and zosyn discontinued on 04/06 as patients UCx negative and Bcx contaminant. Started on rocephin for broad coverage of urinoma dc 04/08, started on augmentin to complete course (end date 04/11) - surgery consulted, planned for a drain placement however concern for urinoma and consulted urology - urology consulted Currently, will manage with maximal urinar
--- NOTE | 2024-04-09 09:11 | WPDUROPN2 ---
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 Indwelling right ureteral stent since 11/2023. Chronic small right pelvic fluid collection -> recent imaging suggests possible ureteral-pelvic fistula with urinoma. Currently, will manage with maximal urinary drainage with ureteral stent and urethral catheter to prevent reflux. Plan for cystoscopy/right ureteroscopy/possible right retrograde pyelogram this afternoon with Dr. Sena. Continue NPO Persistent hematuria after Yuen placement, suspect may be inflammatory, possibly exacerbated by infection with foreign body stent and Yuen in bladder. Intermittently irrigate Yuen catheter as needed. Draining well at this time Subjective Subjective Date/Time Seen: 04/09/24 09:11 Interval history: Anny is doing fair today. Offers no concerns. Still with hematuria reports Yuen has been draining well and has not required irrigation. Denies suprapubic pressure or fullness. Denies nausea, vomiting, fever, chills. no abdominal pain or flank pain. Review of Systems Review of Systems: All systems reviewed & are unremarkable except as noted in HPI and below Exam Narrative: General: Awake, alert, comfortable, no acute distress HEENT: Normocephalic, atraumatic, sclerae anicteric Respiratory: Normal respiratory effort, no accessory muscle use Abdomen: Nondistended, soft, nontender, colostomy bag : Yuen catheter draining light pink urine Skin: Normal coloration, warm and dry Neurologic: No focal neuro deficits noted Psychiatric: Appropriate mood and affect, judgment and insight intact Objective Data Vital Signs Vital Signs: Vital Signs - 24 hr 04/08/24 09:23 04/08/24 09:30 04/08/24 09:25 Temperature Pulse Rate 74 Respiratory Rate Blood Pressure Pulse Oximetry 97 97 Oxygen Delivery Nasal Cannula Nasal Cannula Oxygen Flow Rate 2 2 Fraction of Inspired Oxygen 28 04/08/24 16:00 04/08/24 21:30 04/08/24 20:00 Temperature 97.7 F 96.2 F L Pulse Rate 96 110 H Respiratory Rate 18 20 Blood Pressure 108/51 L 118/54 L Pulse Oximetry 98 96 Oxygen Delivery Room Air Oxygen Flow Rate Fraction of Inspired Oxygen 04/09/24 05:30 04/09/24 07:47 04/09/24 07:48 Temperature 96 F L Pulse Rate 56 L 92 Respiratory Rate 18 Blood Pressure 93/56 L 105/62 Pulse Oximetry 93 93 Oxygen Delivery Non-Rebreather Mask Oxygen Flow Rate 2 Fraction of Inspired Oxygen 28 Intake/Output Intake/Output: Intake & Output 04/06/24 04/07/24 04/08/24 04/09/24 23:59 23:59 23:59 23:59 Intake Total 0937 218 9286 544 Output Total 1550 0328 827 7362 Balance -120 440 182 -5180 Meds/Results Medications: Active Medications Generic Name Dose Route Start Last Admin Trade Name Freq PRN Reason Stop Dose Admin Acetaminophen 1,000 mg 04/05/24 03:39 Acetaminophen 500 Mg Tablet PO Q6H PRN Mild Pain (1-3) or Fever Al Hydrox/Mg Hydrox/Simethicone 30 ml 04/05/24 03:39 04/08/24 22:36 Mag Hydrox/Al Hydrox/Simeth 30 Ml Udc PO 30 ml Q6H PRN Administration Indigestion Amoxicillin/Clavulanate Potassium 1 tablet 04/08/24 12:15 04/08/24 20:11 Amoxicillin/Clavulanate K 875-125 Mg Tab PO 04/11/24 23:59 1 tablet Q12HR NICKY Administration Atorvastatin Calcium 40 mg 04/06/24 09:00 04/08/24 09:23 Atorvastatin 40 Mg Tablet PO 40 mg DAILY NICKY
--- NOTE | 2024-04-09 12:31 | WPDHPUPDATE1 ---
History and Physical Update Update Date/Time: 04/09/24 12:31 History and Physical has been reviewed, including an updated exam of the patient. There are NO changes in the patient's condition. Risks, benefits, and alternatives have been discussed and questions answered. Patient agrees to proceed with procedure.
--- NOTE | 2024-04-09 14:30 | WPDANESEPPF ---
Anes - Initial Pre Proc Eval Procedure: Operation Date: 04/09/24 12:45 Proposed Procedures p Cystoscopy, Right Ureteroscopy, Possible Right Retrograde Pyelogram, Possible Right Stone Extraction, Possible Right Stent Placement, Possible Holmium Laser Procedure - Familia Sena MD Date/Time: 04/09/24 14:30 Surgeon: Ewa Sanchez PA-C Pre Op Diagnosis: Sepsis, UTI, Abdominal abscess Patient Data Age: 68 Gender: F Height: 1.52 m Weight: 51.6 kg Last Vital Signs Temp 97.3 F L 04/09/24 12:42 Pulse 84 04/09/24 12:42 Resp 18 04/09/24 12:42 BP 110/60 04/09/24 12:42 Pulse Ox 100 04/09/24 12:42 O2 Del Method Nasal Cannula 04/09/24 12:42 O2 Flow Rate 2 04/09/24 12:42 FiO2 28 04/09/24 08:00 Allergies Allergy/AdvReac Type Severity Reaction Status Date / Time iodine AdvReac Rash Verified 04/04/24 23:32 morphine AdvReac Dyspnea / Verified 04/04/24 23:32 SOB tramadol AdvReac Abdominal Verified 04/04/24 23:30 Pain Home Medications Medication Instructions Recorded Confirmed Type atorvastatin 40 mg tablet 40 mg PO DAILY 12/07/23 04/05/24 History gabapentin 300 mg capsule 300 mg PO TID 12/07/23 04/05/24 History nortriptyline 25 mg capsule 25 mg PO HS 12/07/23 04/05/24 History oxycodone-acetaminophen 5 mg-325 1 tablet PO TID 12/07/23 04/05/24 History mg tablet topiramate 50 mg tablet 50 mg PO DAILY 12/07/23 04/05/24 History metoprolol succinate 25 mg 12.5 mg PO DAILY #30 tabs 12/10/23 04/05/24 Rx tablet,extended release 24 hr nitrofurantoin 100 mg PO Q12H 7 days #14 caps 12/10/23 04/05/24 Rx monohydrate/macrocrystals 100 mg capsule (Macrobid) Laboratory Tests 04/09/24 05:30 WBC 8.1 K/mm3 (4.5-10.0) RBC 3.27 L M/mm3 (4.2-5.4) Hgb 8.1 L g/dL (12.0-15.0) Hct 27.1 L % (37.0-47.0) MCV 82.9 fl (80-100) MCH 24.8 L pg (26-34) MCHC 29.9 L g/dl (32-36) RDW 15.3 H % (11.5-14.5) Plt Count 184 k/mm3 (150-375) MPV 9.9 fl (7.4-10.4) Immature Gran % (Auto) 0.4 % (0-0.5) Neut % (Auto) 65.0 % (45.5-73.1) Lymph % (Auto) 23.1 % (18.3-44.2) Childress % (Auto) 4.6 % (2.6-8.5) Eos % (Auto) 6.2 H % (0-4.4) Baso % (Auto) 0.7 % (0.2-1.2) Lymph # (Auto) 1.87 K/mm3 (0.9-3.2) Childress # (Auto) 0.4 K/mm3 (0.1-0.6) Eos # (Auto) 0.5 H K/mm3 (0-0.3) Baso # (Auto) 0.1 K/mm3 (0.0-0.1) Abs Immat Gran (auto) 0.03 K/mm3 (0.00-0.031) Absolute Neuts (auto) 5.3 K/mm3 (1.3-6.7) Absolute Nucleated RBC 0.000 K/mm3 (0.0-0.012) Nucleated RBC % 0.0 % (0.0-0.2) Platelet Estimate Adequate (Adequate) Hypochromasia 2+ Ovalocytes 1+ Stomatocytes 1+ Schistocytes None seen Sodium 137 mmol/L (137-145) Potassium 3.6 mmol/L (3.4-5.0) Chloride 102 mmol/L (98-107) Carbon Dioxide 28 mmol/L (22-30) Anion Gap 7 mmol/L (4-12) BUN 14 mg/dL (7-17) Creatinine 0.70 mg/dL (0.7-1.0) Estim Creat Clear Calc 49 ml/min Estimated GFR > 60 (59 - ) Glucose 163 H mg/dL (65-110) Calcium 7.2 L mg/dL (8.4-10.2) Total Bilirubin 0.2 mg/dL (0.2-1.3) AST 24 U/L (14-36) ALT 11 U/L (6-35) Alkaline Phosphatase 75 U/L (38-126) Total Protein 6.0 L g/dL (6.3-8.2) Albumin 2.9 L g/dL (3.5-5.1) Patient hx anesthesia problems: none Family hx anesthesia problems: none Results Review: All pre-operative results and documents have been reviewed as part of the pre-operative evaluation. [facility] Social History Social History Smoking packs per day: 1 Smoking cigarettes per day: 20.0 Smoking status: Current every day smoker Tobacco type: cigarettes Second hand tobacco smoke exposure: Yes Alcohol intake: current Substance use: never Do You Feel Safe in your Home?: Yes Lack of Transportation: No
--- NOTE | 2024-04-09 15:19 | W.PM.PROC2 ---
Procedure Note - Detailed Date of Procedure 04/09/24 Pre-op Diagnosis Sepsis, UTI, pelvic abscess Post-op Diagnosis Same Procedure Performed Cystoscopy, right ureteral stent removal, right retrograde pyelogram, right ureteroscopy, right ureteral stent replacement Surgeon Familia Sena MD Anesthesia General Findings 1. Probable scant extravasation from right ureter into pelvic cavity 2. No apparent urinary tract neoplasm 3. Persistent narrowing of right distal ureter consistent with retroperitoneal fibrosis Description of Procedure Patient is brought to the operative suite where she is prepped draped in routine sterile fashion while in dorsal lithotomy position after the uneventful induction of a general anesthetic. Cystoscopy was undertaken with a 21 F rigid cystoscope. The tip of the indwelling stent is grasped. The stent is removed a 0.035 in glidewire was advanced in the right renal pelvis. The bladder was carefully inspected. There was some stent irritation but no other evidence of mucosal abnormalities in the bladder. There was alejandra neoplasm. Retrograde pyelogram was obtained with an 8 F bulb-tipped catheter. There does appear to be very scant contrast leaking into the pelvis suggesting a possible ureteral fistula. There is prompt filling of the collecting system on the right. There is narrowing of the distal ureter, as before, consistent with retroperitoneal fibrosis ureteroscopy was undertaken in the distal right ureter. There was no obvious mucosal neoplasm but there is marked narrowing. There was no unusual mucosal hyperemia no obvious fistulas. I replaced her indwelling 6 F stent with a 4.8 F variable length stent. Replaced a 16F Yuen catheter to drainage Urine Output 150 Drains Yes Packing No Pathology None sent Complications No immediate complications
[2024-04-09] MEDS: LACTATED RINGERS 1,000 ML 30 ML IV CONT (15:20)
[2024-04-09] MEDS: fentaNYL CITRATE INJ (*CRX) 100 MCG/2 ML VIAL 25 MCG IV PUSH ×3 (15:20→16:13)
[2024-04-09] MEDS: METOPROLOL SUCCINATE EXT REL 12.5 MG TABCR PO (16:39)
[2024-04-09] MEDS: GABAPENTIN 300 MG CAPSULE PO (16:39)
[2024-04-09] MEDS: TOPIRAMATE 25 MG TABLET 50 MG PO (16:39)
[2024-04-09] MEDS: ATORVASTATIN 40 MG TABLET PO (16:39)
[2024-04-09] MEDS: NORTRIPTYLINE HCL 25 MG CAPSULE PO (20:25)
[2024-04-09] MEDS: AMOXICILLIN/CLAVULANATE K 875-125 MG TAB 1 TABLET PO (20:25)
[2024-04-10 03:22] VITALS: BP 110/60; PULSE 86; RESP 16; TEMP 36.6; O2SAT 96
[2024-04-10] MEDS: CENTRAL LINE FLUSH 10 ML IV PUSH (05:15)
[2024-04-10 05:25] LABS: Basophils Percent Auto 0.3 % (0.2-1.2); Hematocrit 26.2 % (37.0-47.0); Hemoglobin 7.9 g/dL (12.0-15.0); Immature Granulocyte Absolute 0.09 K/mm3 (0.00-0.031); Immature Granulocyte Percent A 0.8 % (0-0.5); Lymphocytes Absolute Auto 0.86 K/mm3 (0.9-3.2); Lymphocytes Percent Auto 7.9 % (18.3-44.2); Mean Corpuscular HGB Conc 30.2 g/dl (32-36); Mean Corpuscular Hemoglobin 24.8 pg (26-34); Mean Corpuscular Volume 82.4 fl (80-100); Mean Platelet Volume 10.4 fl (7.4-10.4); Monocytes Absolute Auto 0.4 K/mm3 (0.1-0.6); Monocytes Percent Auto 3.2 % (2.6-8.5); Neutrophils Absolute Auto 9.5 K/mm3 (1.3-6.7); Neutrophils Percent Auto 87.8 % (45.5-73.1); Platelet Count Result 221 k/mm3 (150-375); Red Blood Count 3.18 M/mm3 (4.2-5.4); Red Cell Distribution Width 15.2 % (11.5-14.5); White Blood Count 10.8 K/mm3 (4.5-10.0)
[2024-04-10 05:48] LABS: Alanine Aminotransferase 11 U/L (6-35); Alkaline Phosphatase 77 U/L (38-126); Anion Gap 5 mmol/L (4-12); Aspartate Amino Transferase 17 U/L (14-36); Bilirubin,Total < 0.1 mg/dL (0.2-1.3); Blood Urea Nitrogen 11 mg/dL (7-17); Calcium 7.8 mg/dL (8.4-10.2); Carbon Dioxide 27 mmol/L (22-30); Chloride 103 mmol/L (98-107); Estimated CRCL calculation 49 ml/min; Estimated Glomerular Filt Rate > 60; Glucose 127 mg/dL (65-110); Potassium 4.2 mmol/L (3.4-5.0); Sodium 135 mmol/L (137-145)
--- NOTE | 2024-04-10 06:32 | WPDUROPN2 ---
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 abscess). Options: 1. Maximal drainage with Yuen cahteter and ureteral stent to see if urinoma will resolve -> re-image with CT in 4-[address] pelvic drain into urinoma/abscess 3. Right ureteral re-implantation -> could be very challenging in a hostile pelvis. For now, suggest discharge with indwelling catheter x4-6 weeks. She can f/u either with me or my partner who occasionally sees patients in [place], [place] (where discharge is being considered) Subjective Subjective Date/Time Seen: 04/10/24 06:32 Interval history: Comfortable, urine clear Review of Systems Cardiovascular: Cardiovascular: Denies chest pain, Denies lightheadedness, Denies palpitations and Denies dyspnea Respiratory: Respiratory: Denies dyspnea Gastrointestinal: Gastrointestinal: Denies diarrhea, Denies nausea and Denies vomiting Genitourinary: Genitourinary: Denies hematuria and Denies dysuria Endocrine: Endocrine: Denies palpitations Exam Const: General: no acute distress Resp: Effort & Inspection: normal respiratory effort GI: Inspection: non-distended GI Palp: No abdominal tenderness and No Guarding due to palpation present (GI) Auscultation: normal bowel sounds Urinary Catheter: Urinary Catheter: patent and draining and urine clear Objective Data Vital Signs Vital Signs: Vital Signs - 24 hr 04/09/24 07:47 04/09/24 07:48 04/09/24 08:00 Temperature Pulse Rate 92 Respiratory Rate Blood Pressure 105/62 Pulse Oximetry 93 96 Oxygen Delivery Non-Rebreather Mask Nasal Cannula Oxygen Flow Rate 2 2 Fraction of Inspired Oxygen 28 28 04/09/24 09:45 04/09/24 12:42 04/09/24 15:20 Temperature 97.3 F L 97.8 F Pulse Rate 84 98 Respiratory Rate 18 16 Blood Pressure 100/59 L 110/60 130/79 Pulse Oximetry 100 100 Oxygen Delivery Nasal Cannula Nasal Cannula Oxygen Flow Rate 2 2 Fraction of Inspired Oxygen 04/09/24 15:30 04/09/24 15:45 04/09/24 16:00 Temperature Pulse Rate 79 90 90 Respiratory Rate 16 16 20 Blood Pressure 119/65 120/70 122/64 Pulse Oximetry 100 100 100 Oxygen Delivery Nasal Cannula Nasal Cannula Nasal Cannula Oxygen Flow Rate 2 2 2 Fraction of Inspired Oxygen 04/09/24 16:15 04/09/24 16:39 04/09/24 16:39 Temperature 98 F Pulse Rate 81 88 85 Respiratory Rate 12 16 Blood Pressure 107/58 L 129/81 Pulse Oximetry 100 95 Oxygen Delivery Nasal Cannula Oxygen Flow Rate 2 Fraction of Inspired Oxygen 04/09/24 16:55 04/09/24 20:11 04/09/24 20:00 Temperature 98 F 97.3 F L Pulse Rate 83 107 H Respiratory Rate 18 18 Blood Pressure 126/72 116/58 L Pulse Oximetry 97 95 95 Oxygen Delivery Nasal Cannula Oxygen Flow Rate 2 Fraction of Inspired Oxygen 04/09/24 23:52 04/10/24 03:22 Temperature 97.9 F 97.9 F Pulse Rate 103 H 86 Respiratory Rate 16 16 Blood Pressure 114/60 110/60 Pulse Oximetry 95 96 Oxygen Delivery Oxygen Flow Rate Fraction of Inspired Oxygen Intake/Output Intake/Output: Intake & Output 04/07/24 04/08/24 04/09/24 04/10/24 23:59 23:59 23:59 23:59 Intake Total 740 1422 764 Output Total 7206 424 2013 [address] [id number] [id number] [id number] Meds/Results Medications: Active Medications Generic Name Dose Route Start Last Admin Trade Name Freq PRN Reason Stop Dose Admin Acetaminophen 1,000 mg 04/05/24 03:39 Acetaminophen 500 Mg Tablet PO Q6H PRN Mild Pain (1-3) or Fever Al Hydrox/Mg Hydrox/Sim
[2024-04-10 08:00] VITALS: PULSE 86; RESP 16; O2SAT 96
[2024-04-10] MEDS: GABAPENTIN 300 MG CAPSULE PO (09:19)
[2024-04-10] MEDS: oxyCODONE/ACETAMINOPHEN (*CRX) 5-325 MG TABLET 1 TABLET PO (09:20)
[2024-04-10] MEDS: TOPIRAMATE 25 MG TABLET 50 MG PO (09:20)
[2024-04-10] MEDS: ATORVASTATIN 40 MG TABLET PO (09:20)
[2024-04-10] MEDS: FERROUS SULFATE 325 MG TABLET DR PO (09:20)
[2024-04-10] MEDS: METOPROLOL SUCCINATE EXT REL 12.5 MG TABCR PO (09:20)
[2024-04-10] MEDS: AMOXICILLIN/CLAVULANATE K 875-125 MG TAB 1 TABLET PO (09:20)
--- NOTE | 2024-04-10 09:25 | P.PNIM_ITS ---
Progress Note: A&P Assessment and Plan (1) Sepsis: Code(s): A41.9 - Sepsis, unspecified organism Status: Acute Assessment and Plan: Meets SIRS criteria: leukocytosis, lactic acidosis tachycardia, tachypnea, and suspected source of UTI/abdominal abscess/urinoma - lactic acid: 3.4 >> 0.9 on reassessment - sepsis bolus received in the ED - suspected source: UTI vs abdominal abscess vs urinoma - antibiotics: vancomycin and zosyn discontinued on 04/06 as patients UCx negative and Bcx contaminant. Started on rocephin for broad coverage of urinoma dc 04/08, remains on augmentin to complete antibiotic course (end date 04/11) - blood cultures drawn on 04/04: staph epidermidis in one culture, likely contaminant - UA: cloudy appearance with 3+ protein, 3+ ketones, 2+ blood, 1+ leukocytes, 11-20 RBC, 51-100 WBC - Urine culture collected on 04/04: negative - CXR: emphysema - Head CT: no acute intracranial findings. 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 - Abdomen/pelvis CT: abscess in the right side of the pelvis posteriorly with emphysematous changes in both sides of the pelvis posteriorly. Right double-J stent slight thickening of the wall of the renal pelvis which may indicate inflammatory changes. Minimal fullness of the left renal pelvis. Left anterior abdominal wall hernia with small bowel content. Adjacent left colostomy is noted. Thickened wall of the gallbladder which may indicate cystitis. 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 In the prone position, the fluid collection is mildly decreased in size from 04/04/2024. Resolved. Patient to complete antibiotic course on 04/11. (2) Altered mental status: Code(s): R41.82 - Altered mental status, unspecified Status: Acute Assessment and Plan: Patient is baseline AOx4. She was AOx1 on admission. Likely due to ongoing infection. - UA: cloudy appearance with 3+ protein, 3+ ketones, 2+ blood, 1+ leukocytes, 11-20 RBC, 51-100 WBC - Urine culture collected on 04/04: negative - CXR: emphysema - Head CT: no acute intracranial findings. 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 - Abdomen/pelvis CT: abscess in the right side of the pelvis posteriorly with emphysematous changes in both sides of the pelvis posteriorly. Right double-J stent slight thickening of the wall of the renal pelvis which may indicate inflammatory changes. Minimal fullness of the left renal pelvis. Left anterior abdominal wall hernia with small bowel content. Adjacent left colostomy is noted. Thickened wall of the gallbladder which may indicate cystitis. 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 In the prone position, the fluid collection is mildly decreased in size from 04/04/2024 - Covid/flu/RSV ordered - EtOH negative Resolved. 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 Patient had a cystoscopy, bilateral retrograde pyelography, right ureteroscopy, right ureteral stent placement, bladder biopsy on 12/07/[address] Higgins. - Abdomen/pelvis CT: 4.8x1.4 cm abscess in the right side of the pelvis posteriorly with emphysematous changes in both sides of the pelvis posteriorly. 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 In the prone position, the fluid collection is mildly decreased in size from 04/04/2024. - Antibiotics: vancomycin and zosyn discontinued on 04/06 as patients UCx negative and Bcx
--- NOTE | 2024-04-10 12:11 | P.DS_ITS ---
DS: Admitting Diagnosis Discharge Date 04/10 Admitting Diagnosis ams DS: Discharge Diagnosis Discharge Diagnosis (1) Sepsis: Code(s): A41.9 - Sepsis, unspecified organism Status: Acute Assessment and Plan: Meets SIRS criteria: leukocytosis, lactic acidosis tachycardia, tachypnea, and suspected source of UTI/abdominal abscess/urinoma - lactic acid: 3.4 >> 0.9 on reassessment - sepsis bolus received in the ED - suspected source: UTI vs abdominal abscess vs urinoma - antibiotics: vancomycin and zosyn discontinued on 04/06 as patients UCx negative and Bcx contaminant. Started on rocephin for broad coverage of urinoma dc 04/08, remains on augmentin to complete antibiotic course (end date 04/11) - blood cultures drawn on 04/04: staph epidermidis in one culture, likely contaminant - UA: cloudy appearance with 3+ protein, 3+ ketones, 2+ blood, 1+ leukocytes, 11-20 RBC, 51-100 WBC - Urine culture collected on 04/04: negative - CXR: emphysema - Head CT: no acute intracranial findings. 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 - Abdomen/pelvis CT: abscess in the right side of the pelvis posteriorly with emphysematous changes in both sides of the pelvis posteriorly. Right double-J stent slight thickening of the wall of the renal pelvis which may indicate inflammatory changes. Minimal fullness of the left renal pelvis. Left anterior abdominal wall hernia with small bowel content. Adjacent left colostomy is noted. Thickened wall of the gallbladder which may indicate cystitis. 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 In the prone position, the fluid collection is mildly decreased in size from 04/04/2024. Resolved. Patient to complete antibiotic course on 04/11. (2) Altered mental status: Code(s): R41.82 - Altered mental status, unspecified Status: Acute Assessment and Plan: Patient is baseline AOx4. She was AOx1 on admission. Likely due to ongoing infection. - UA: cloudy appearance with 3+ protein, 3+ ketones, 2+ blood, 1+ leukocytes, 11-20 RBC, 51-100 WBC - Urine culture collected on 04/04: negative - CXR: emphysema - Head CT: no acute intracranial findings. 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 - Abdomen/pelvis CT: abscess in the right side of the pelvis posteriorly with emphysematous changes in both sides of the pelvis posteriorly. Right double-J stent slight thickening of the wall of the renal pelvis which may indicate inflammatory changes. Minimal fullness of the left renal pelvis. Left anterior abdominal wall hernia with small bowel content. Adjacent left colostomy is noted. Thickened wall of the gallbladder which may indicate cystitis. 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 In the prone position, the fluid collection is mildly decreased in size from 04/04/2024 - Covid/flu/RSV ordered - EtOH negative Resolved. 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 Patient had a cystoscopy, bilateral retrograde pyelography, right ureteroscopy, right ureteral stent placement, bladder biopsy on 12/07/[address] Higgins. - Abdomen/pelvis CT: 4.8x1.4 cm abscess in the right side of the pelvis posteriorly with emphysematous changes in both sides of the pelvis posteriorly. 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 In the prone position, the fluid collection is mildly decreased in size from
--- NOTE | 2024-04-10 13:31 | PC.NURSE ---
This RN called [place] [facility] [place] if [place]'s daughters would be bringing 02 up when they picked up patient. Pt stated she would go without until they went to her house in [place] to retrieve it. Educated pt on 02 use, but pt states she normally does this.
[2024-04-10 14:14] VITALS: BP 112/68; PULSE 84; RESP 16; TEMP 36.7; O2SAT 95
== END 2024-04-10 15:40 | disposition home or self-care (01) | DRG 853 ==
LOC: ANHED 16:42 → ANH3MEDSUR 21:10
PROVIDERS: Internal Medicine; Student in an Organized Health Care Education/Training Program; Urology; Admitting Provider Internal Medicine; Emergency Provider Student in an Organized Health Care Education/Training Program; Visit Provider Nurse Practitioner
PROC: 0T768DZ Dilation of Right Ureter with Intraluminal Device, Via Natural or Artificial Opening Endoscopic (ICD-10-PCS; CPT 52352; principal; 2024-04-09 12:45)
DX: A41.9 Sepsis, unspecified organism (principal); K68.2 Retroperitoneal fibrosis; N39.0 Urinary tract infection, site not specified; N13.30 Unspecified hydronephrosis; G93.40 Encephalopathy, unspecified; J96.11 Chronic respiratory failure with hypoxia; N28.89 Other specified disorders of kidney and ureter; N36.8 Other specified disorders of urethra; J43.9 Emphysema, unspecified; K43.9 Ventral hernia without obstruction or gangrene; R31.9 Hematuria, unspecified; Z20.822 Contact with and (suspected) exposure to COVID-19; F17.210 Nicotine dependence, cigarettes, uncomplicated; Z99.81 Dependence on supplemental oxygen; Z85.048 Personal history of other malignant neoplasm of rectum, rectosigmoid junction, and anus; Z93.3 Colostomy status
CPT/HCPCS: 36415; 36600; 70450; 71045; 72192; 74177; 74420; 80053; 80307; 81001; 82375; 82607; 82746; 82805; 83050; 83540; 83550; 83605; 84484; 85025; 85610; 85730; 86140; 87040; 87077; 87086; 87181; 87493; 87635; 87637; 93005; 96361; 96365; 97110; 97116; 97161; 97166; 97530; 97535; 99285; A9270; C1758; C1769; C2617; J0696; J1100; J1642; J1650; J2185; J2405; J2543; J2704; J3010; J3370; J3480; J7030; J7040; J7120; Q9966; Q9967